=== PATIENT | male | born 1955 | race Caucasian/White ===

== ENCOUNTER → 2021-07-19 08:25 | Outpatient (BNVA) | payer OTHER, SELFPAY | PROVIDERS: Family Provider Family Medicine; PCP Family Medicine; Visit Provider Family Medicine | DX: Z00.00 Encounter for general adult medical examination without abnormal findings (principal) | CPT/HCPCS: 80053; 80061; 84153 ==

== ENCOUNTER → 2022-05-15 15:42 | Outpatient (BNVA) | payer MEDICARE, OTHER, SELFPAY | PROVIDERS: Family Provider Family Medicine; PCP Family Medicine; Visit Provider Otolaryngology | DX: H93.13 Tinnitus, bilateral (principal); H91.93 Unspecified hearing loss, bilateral | CPT/HCPCS: 99203 ==

== ENCOUNTER → 2022-06-12 10:52 | Outpatient (BNVA) | payer MEDICARE, OTHER, SELFPAY | PROVIDERS: Family Provider Family Medicine; PCP Family Medicine; Visit Provider Family Medicine | DX: R10.9 Unspecified abdominal pain (principal) | CPT/HCPCS: 74018; 80053; 85025; 86140 ==

== ENCOUNTER 2022-06-14 16:23 | Emergency (ER) | payer MEDICARE, OTHER, SELFPAY ==
[2022-06-14 16:39] VITALS: BP 134/81; PULSE 69; TEMP 36.8; O2SAT 95; BMI 27.9
[2022-06-14 17:07] VITALS: BP 123/87; PULSE 70; RESP 16; O2SAT 93
--- NOTE | 2022-06-14 17:19 | W.ED.ABDPA2 ---
Documented by User: Froy Rodriguez DO 06/15/22 06:39 HPI - Abdominal Pain General: Chief Complaint: Abdominal Pain Stated Complaint: abdominal pain, sent by doctor Time Seen by Provider: 06/14/22 16:54 Source: patient Mode of arrival: ambulatory History of Present Illness: 66-year-old male presents to the emergency room complaining of abdominal pain. He has had severe abdominal pain for the last several days it is continued. He had seen his doctor had significantly abnormal lab tests which were reviewed and are on the chart. His doctor advised him to present to the emergency room if symptoms worsen. He appears mildly icteric. He is resting comfortably in the bed reporting right upper quadrant abdominal pain radiating to his back. He denies fever sweats chills. Denies dysuria urgency or frequency no hematuria no shortness of breath. Pain is still present but is mildly improved. MD elicited complaint: abdominal pain Onset (ago): day(s) Pain Consistency: intermittent Location: RUQ Quality: cramping Radiation: back Exacerbating factors: eating Relieving factors: nothing Associated Symptoms: Reports bloating, GI cramping, nausea and poor appetite; Denies anorexia, belching, change in bowel habits, change in stool character, chills, coffee ground emesis, constipation, diarrhea, dyspepsia, dysuria, excessive flatus, fever(s), heartburn, hematochezia, hematuria, hematemesis, fecal incontinence, loose stools, melena, syncope and vomiting Review of Systems Const: Denies: fever(s) or chills Card: Denies: syncope GI: Reports: nausea, bloating and GI cramping; Denies: vomiting, hematemesis, coffee ground emesis, heartburn, diarrhea, constipation, belching, excessive flatus, fecal incontinence, change in bowel habits, change in stool character, hematochezia or melena : Denies: dysuria or hematuria PFSH ED PFSH: Medical History Hx of perforation of tympanic membrane Surgical History History of ear surgery Social History Smoking and tobacco status: former smoker Physical Exam Const: COMMON NORMALS: no acute distress GENERAL APPEARANCE: cooperative and comfortable ORIENTATION/CONSCIOUSNESS: Yes awake, Yes oriented to person, Yes oriented to place and Yes oriented to time HENMT: COMMON NORMALS: normocephalic, atraumatic and hearing grossly normal bilaterally HEAD & SCALP: normocephalic and atraumatic Resp: COMMON NORMALS: normal respiratory effort, No retractions, No use of accessory muscles and clear to auscultation bilaterally AUSCULTATION: clear to auscultation bilaterally Cardio: COMMON NORMALS: regular rate, regular rhythm and No murmurs present (Cardio) RATE: regular rate RHYTHM: regular rhythm GI: COMMON NORMALS: Soft to palpation and No hepatosplenomegaly present AUSCULTATION: Yes normoactive bowel sounds PALPATION: Yes Soft to palpation, Yes Tenderness to palpation present (GI) Details: RUQ (Negative Taveras sign), No Guarding due to palpation present (GI) and Yes No hepatosplenomegaly present Extremity: COMMON NORMALS: normal to inspection, capillary refill normal, no clubbing, cyanosis or edema, no calf tenderness and no pedal edema Neuro: SENSORIUM/ORIENTATION: Yes oriented to person, Yes oriented to place and Yes oriented to time Skin: COMMON NORMALS: no rashes or lesions noted GENERAL SKIN EXAM: no rashes or lesions noted Course Vital Signs: Vital signs: Vital Signs Temperature 98.2 F 06/14/22 16:39 Pulse Rate 72 06/14/22 19:44 Respiratory Rate 16 06/14/22 19:44 Blood Pressure 164/104 06/14/22 19:44 Pulse Oximetry 96 06/14/22 19:44 Oxygen Delivery Me thod Room Air 06/14/22 19:44 MDM - Abdominal Pain Medical Decision Making Significant elevation of T. bili and transaminases along with the alk phos on previous labs. Today's labs are nearly normalized. Ultrasound is pending. Suspect patient has passed a gallstone. Care signed out to Dr. Gardner at change of shift. See final notes for diagnosis and disposition. Patient presents for abdominal pain ultrasound here did show some gallbladder wall thickening with gallstones he is not tender at repeat exam at discharge and is abdominal dam is benign with no tenderness he has had no fever he likely had a stone that passed this his bilirubin is improved from 2 days ago is now in normal no common bile duct thickening on the ultrasound spoke to surgeon Dr. Skinner patient is already on Augmentin he is to follow-up with Dr. Skinner outpatient for likely scheduled cholecystectomy. I did inform patient is worsening pain or fever he is to return he understands agrees to plan. Lab Data 06/14/22 17:01 06/14/22 17:01 Labs/Radiology: Radiology Impressions Gallbladder Ultrasound 06/14/22 17:26 IMPRESSION: Gallbladder is filled with stones with wall thickening. The sonographic Taveras's sign is negative arguing against acute cholecystitis by ultrasound. Consider nuclear medicine HIDA scan follow-up for further assessment. Laboratory Results WBC 13.2 10^3/uL (4.0-10.0) H 06/14/22 17: RBC 5.12 10^6/uL (4.1-5.3) 06/14/22 17: Hgb 15.6 g/dL (11.7-16.6) 06/14/22 17: Hct 46.2 % (42.0-52.0) 06/14/22 17: MCV 90.2 fl (80-94) 06/14/22 17: MCH 30.5 pg (28.0-34.0) 06/14/22 17: MCHC 33.8 g/dL (30.0-36.0) 06/14/22 17: RDW 12.8 % (12.1-15.1) 06/14/22 17:01 Plt Count 209 10^3/cmm (130-400) 06/14/22 17: MPV 9.6 fL (7.4-10.4) 06/14/22 17:01 Neut % (Auto) 74.1 % 06/14/22 17:01 Lymph % (Auto) 11.6 % 06/14/22 17: [place] % (Auto) 11.7 % 06/14/22 17: Eos % (Auto) 1.8 % 06/14/22 17:01 Baso % (Auto) 0.4 % 06/14/22 17:01 Neut # (Auto) 9.81 10^3/uL (1.8-7.7) H 06/14/22 17:01 Lymph # (Auto) 1.5 10^3/uL (0.8-4.8) 06/14/22 17:01 [place] # (Auto) 1.6 10^3/uL (0.2-0.9) H 06/14/22 17:01 Eos # (Auto) 0.2 10^3/uL (0.0-0.8) 06/14/22 17:01 Baso # (Auto) 0.1 10^3/uL (0.0-0.1) 06/14/22 17:01 Nucleated RBC % (auto) 0 % 06/14/22 17:01 Nucleated RBCs # 0.0 /100WBC 06/14/22 17:01 Sodium 136 mmol/L (136-145) 06/14/22 17:01 Potassium 3.7 mmol/L (3.5-5.1) 06/14/22 17:01 Chloride 97 mmol/L (98-107) L 06/14/22 17:01 Carbon Dioxide 30 mmol/L (22-29) H 06/14/22 17:01 Anion Gap 12.7 (5-19) 06/14/22 17:01 BUN 12 mg/dL (8-23) 06/14/22 17:01 Creatinine 1.0 mg/dL (0.7-1.2) 06/14/22 17:01 GFR Calculation 75.0 mL/min (90-130) L 06/14/22 17:01 Glucose 92 mg/dL (65-115) 06/14/22 17:01 Calculated Osmolality 281 mOsm/kg (285-295) L 06/14/22 17:01 Calcium 9.0 mg/dL (8.5-10.5) 06/14/22 17:01 Total Bilirubin 0.9 mg/dL (0.15-1.2) 06/14/22 17:01 AST 36 U/L (0-40) 06/14/22 17:01 ALT 247 U/L (0-41) H 06/14/22 17:01 Alkaline Phosphatase 120 U/L (40-130) 06/14/22 17:01 Total Protein 7.3 g/dL (6.6-8.7) 06/14/22 17:01 Albumin 3.9 g/dL (3.5-5.2) 06/14/22 17:01 Globulin 3.4 g/dL (1.3-4.6) 06/14/22 17:01 Lipase 94 U/L (13-60) H 06/14/22 17:01 Urine Color Yellow (Yellow) 06/14/22 16:59 Urine Appearance Clear (CLEAR) 06/14/22 16:59 Urine pH 6 (5-7) 06/14/22 16:59 Ur Specific [place] 1.010 (1.005-1.030) 06/14/22 16:59 Urine Protein Neg (Negative) 06/14/22 16:59 Urine Glucose (UA) Norm (Normal) 06/14/22 16:59 Urine Ketones Negative (Negative) 06/14/22 16:59 Urine Blood 2+ (Negative) H 06/14/22 16:59 Urine Nitrate Negative (Negative) 06/14/22 16:59 Urine Bilirubin Neg (Negative) 06/14/22 16:59 Urine Urobilinogen Neg mg/dL (Negative) 06/14/22 16:59 Ur Leukocyte Esterase Negative (Negative) 06/14/22 16:59 Urine RBC 0-4 /hpf (0-2) H 06/14/22 16:59 Urine WBC None /hpf (0-5) 06/14/22 16:59 Ur Squamous Epith Cells 0-4 /hpf (0-5) H 06/14/22 16:59 Amorphous Sediment Not Reportable 06/14/22 16:59 Urine Bacteria None /hpf (NONE) 06/14/22 16:59 Discharge Plan Discharge Patient Disposition: Home Clinical Impression: Abdominal pain, Cholelithiasis Condition: Stable Prescriptions: New hydrocodone-acetaminophen 5-325 mg tablet 1 tab PO Q6H PRN (Reason: pain) Qty: 14 0RF No Action ondansetron HCl 4 mg tablet 4 mg PO Q6H PRN (Reason: nausea and vomiting) Qty: 30 0RF amoxicillin-pot clavulanate 875-125 mg tablet 1 tab PO BID Qty: 20 0RF Discharge Orders: Discharge ED (Routine); Ordered 06/14/22 Ordered By: Gato Gardner Referrals: Michael Skinner DO [Physician] - 1-3 days Mk Aponte DO [Primary Care Provider] - Discharge Diet: Advance as tolerated Discharge Activity: Resume usual activity Patient Instructions: Gallstones (ED), Abdominal Pain (ED), Opioid Safety Activity Restrictions/Additional Instructions: return if worsening pain or fever Coding Level of Care Code ED Signal Intelligence Analyst for Chg Fwd Documented by User: Gato Gardner MD 06/14/22 19:47 HPI - Abdominal Pain General: Chief Complaint: Abdominal Pain Stated Complaint: abdominal pain, sent by doctor Time Seen by Provider: 06/14/22 16:54 History of Present Illness: . PFS ED PFSH: Medical History Hx of perforation of tympanic membrane Surgical History History of ear surgery Social History Smoking and tobacco status: former smoker Course Vital Signs: Vital signs: Vital Signs Temperature 98.2 F 06/14/22 16:39 Pulse Rate 72 06/14/22 19:44 Respiratory Rate 16 06/14/22 19:44 Blood Pressure 164/104 06/14/22 19:44 Pulse Oximetry 96 06/14/22 19:44 Oxygen Delivery Me thod Room Air 06/14/22 19:44 MDM - Abdominal Pain Medical Decision Making Patient presents for abdominal pain ultrasound here did show some gallbladder wall thickening with gallstones he is not tender at repeat exam at discharge and is abdominal dam is benign with no tenderness he has had no fever he likely had a stone that passed this his bilirubin is improved from 2 days ago is now in normal no common bile duct thickening on the ultrasound spoke to surgeon Dr. Skinner patient is already on Augmentin he is to follow-up with Dr. Skinner outpatient for likely scheduled cholecystectomy. I did inform patient is worsening pain or fever he is to return he understands agrees to plan. Lab Data 06/14/22 17:01 06/14/22 17:01 Labs/Radiology: Radiology Impressions Gallbladder Ultrasound 06/14/22 17:26 IMPRESSION: Gallbladder is filled with stones with wall thickening. The sonographic Taveras's sign is negative arguing against acute cholecystitis by ultrasound. Consider nuclear medicine HIDA scan follow-up for further assessment. Laboratory Results WBC 13.2 10^3/uL (4.0-10.0) H 06/14/22 17:01 RBC 5.12 10^6/uL (4.1-5.3) 06/14/22 17: Hgb 15.6 g/dL (11.7-16.6) 06/14/22 17: Hct 46.2 % (42.0-52.0) 06/14/22 17: MCV 90.2 fl (80-94) 06/14/22 17: MCH 30.5 pg (28.0-34.0) 06/14/22 17: MCHC 33.8 g/dL (30.0-36.0) 06/14/22 17: RDW 12.8 % (12.1-15.1) 06/14/22 17: Plt Count 209 10^3/cmm (130-400) 06/14/22 17:01 MPV 9.6 fL (7.4-10.4) 06/14/22 17:01 Neut % (Auto) 74.1 % 06/14/22 17: Lymph % (Auto) 11.6 % 06/14/22 17:01 [place] % (Auto) 11.7 % 06/14/22 17: Eos % (Auto) 1.8 % 06/14/22 17: Baso % (Auto) 0.4 % 06/14/22 17:01 Neut # (Auto) 9.81 10^3/uL (1.8-7.7) H 06/14/22 17:01 Lymph # (Auto) 1.5 10^3/uL (0.8-4.8) 06/14/22 17:01 [place] # (Auto) 1.6 10^3/uL (0.2-0.9) H 06/14/22 17:01 Eos # (Auto) 0.2 10^3/uL (0.0-0.8) 06/14/22 17: Baso # (Auto) 0.1 10^3/uL (0.0-0.1) 06/14/22 17:01 Nucleated RBC % (auto) 0 % 06/14/22 17:01 Nucleated RBCs # 0.0 /100WBC 06/14/22 17:01 Sodium 136 mmol/L (136-145) 06/14/22 17:01 Potassium 3.7 mmol/L (3.5-5.1) 06/14/22 17:01 Chloride 97 mmol/L (98-107) L 06/14/22 17:01 Carbon Dioxide 30 mmol/L (22-29) H 06/14/22 17:01 Anion Gap 12.7 (5-19) 06/14/22 17:01 BUN 12 mg/dL (8-23) 06/14/22 17:01 Creatinine 1.0 mg/dL (0.7-1.2) 06/14/22 17:01 GFR Calculation 75.0 mL/min (90-130) L 06/14/22 17:01 Glucose 92 mg/dL (65-115) 06/14/22 17:01 Calculated Osmolality 281 mOsm/kg (285-295) L 06/14/22 17:01 Calcium 9.0 mg/dL (8.5-10.5) 06/14/22 17:01 Total Bilirubin 0.9 mg/dL (0.15-1.2) 06/14/22 17:01 AST 36 U/L (0-40) 06/14/22 17:01 ALT 247 U/L (0-41) H 06/14/22 17:01 Alkaline Phosphatase 120 U/L (40-130) 06/14/22 17:01 Total Protein 7.3 g/dL (6.6-8.7) 06/14/22 17:01 Albumin 3.9 g/dL (3.5-5.2) 06/14/22 17:01 Globulin 3.4 g/dL (1.3-4.6) 06/14/22 17:01 Lipase 94 U/L (13-60) H 06/14/22 17:01 Urine Color Yellow (Yellow) 06/14/22 16:59 Urine Appearance Clear (CLEAR) 06/14/22 16:59 Urine pH 6 (5-7) 06/14/22 16:59 Ur Specific [place] 1.010 (1.005-1.030) 06/14/22 16:59 Urine Protein Neg (Negative) 06/14/22 16:59 Urine Glucose (UA) Norm (Normal) 06/14/22 16:59 Urine Ketones Negative (Negative) 06/14/22 16:59 Urine Blood 2+ (Negative) H 06/14/22 16:59 Urine Nitrate Negative (Negative) 06/14/22 16:59 Urine Bilirubin Neg (Negative) 06/14/22 16:59 Urine Urobilinogen Neg mg/dL (Negative) 06/14/22 16:59 Ur Leukocyte Esterase Negative (Negative) 06/14/22 16:59 Urine RBC 0-4 /hpf (0-2) H 06/14/22 16:59 Urine WBC None /hpf (0-5) 06/14/22 16:59 Ur Squamous Epith Cells 0-4 /hpf (0-5) H 06/14/22 16:59 Amorphous Sediment Not Reportable 06/14/22 16:59 Urine Bacteria None /hpf (NONE) 06/14/22 16:59 Discharge Plan Discharge Patient Disposition: Home Clinical Impression: Abdominal pain, Cholelithiasis Condition: Stable Prescriptions: New hydrocodone-acetaminophen 5-325 mg tablet 1 tab PO Q6H PRN (Reason: pain) Qty: 14 0RF No Action ondansetron HCl 4 mg tablet 4 mg PO Q6H PRN (Reason: nausea and vomiting) Qty: 30 0RF amoxicillin-pot clavulanate 875-125 mg tablet 1 tab PO BID Qty: 20 0RF Discharge Orders: Discharge ED (Routine); Ordered 06/14/22 Ordered By: Gato Gardner Referrals: Michael Skinner DO [Physician] - 1-3 days Mk Aponte DO [Primary Care Provider] - Discharge Diet: Advance as tolerated Discharge Activity: Resume usual activity Patient Instructions: Gallstones (ED), Abdominal Pain (ED), Opioid Safety Activity Restrictions/Additional Instructions: return if worsening pain or fever Coding Level of Care Code ED Signal Intelligence Analyst for Adáng Kaylah
--- NOTE | 2022-06-14 17:26 | USR_ITS ---
PROCEDURE INFORMATION: Exam: US Abdomen, Limited; Right Upper Quadrant Exam date and time: 06/14/2022 6:08 PM Age: 66 years old Clinical indication: Epigastric; Patient HX: Upper abdominal pain not relieved by antacids today. No history of abdominal surgery. Normal tbili = 0.9, normal ast = 36, elevated alt = 247, normal alkphos = 120, elevated lipase = 94; Additional info: Abd pain TECHNIQUE: Imaging protocol: Real time ultrasound of the abdomen with image documentation. Limited exam focused on the right upper quadrant. COMPARISON: CR XR abdomen 1V* [id number] 06/12/2022 10:51 AM FINDINGS: Liver: Normal. No masses. Gallbladder: Gallbladder wall thickness measures 9 mm. The gallbladder is filled with stones with wall echo shadow sign present. Sonographic Taveras's sign is negative. Biliary ducts: Normal. No stones. No dilation. Pancreas: Visualized pancreas is unremarkable. Right kidney: Normal. No mass. No hydronephrosis. US/US gall bladder [id number] IMPRESSION: Gallbladder is filled with stones with wall thickening. The sonographic Taveras's sign is negative arguing against acute cholecystitis by ultrasound. Consider nuclear medicine HIDA scan follow-up for further assessment.
[2022-06-14 17:28] LABS: Basophils # 0.1 10^3/uL (0.0-0.1); Basophils % 0.4 %; Eosinophils # 0.2 10^3/uL (0.0-0.8); Eosinophils % 1.8 %; Hematocrit 46.2 % (42.0-52.0); Hemoglobin 15.6 g/dL (11.7-16.6); Lymphocytes # 1.5 10^3/uL (0.8-4.8); Lymphocytes % 11.6 %; Mean Corpuscular HGB Conc 33.8 g/dL (30.0-36.0); Mean Corpuscular Hemoglobin 30.5 pg (28.0-34.0); Mean Corpuscular Volume 90.2 fl (80-94); Mean Platelet Volume 9.6 fL (7.4-10.4); Monocytes # 1.6 10^3/uL (0.2-0.9); Monocytes % 11.7 %; Neutrophils # 9.81 10^3/uL (1.8-7.7); Neutrophils % 74.1 %; Nucleated Red Blood Cells % 0 %; Platelet Count 209 10^3/cmm (130-400); Red Blood Count 5.12 10^6/uL (4.1-5.3); Red Cell Distribution Width 12.8 % (12.1-15.1); White Blood Count 13.2 10^3/uL (4.0-10.0)
[2022-06-14 17:44] LABS: Add Urine Microscopic? YES; Bilirubin Urine Neg (Negative); Blood Urine 2+ (Negative); Glucose Urine UA Norm (Normal); Ketones Urine Negative (Negative); Leukocyte Esterase Urine Negative (Negative); Nitrate Urine Negative (Negative); Protein Urine Neg (Negative); Urine Appearance Clear (CLEAR); Urine Color Yellow (Yellow); Urobilinogen Urine Neg (Negative); pH Urine 6 (5-7)
[2022-06-14 17:53] LABS: Alanine Aminotransferase 247 U/L (0-41); Albumin Level 3.9 g/dL (3.5-5.2); Alkaline Phosphatase 120 U/L (40-130); Anion Gap 12.7 (5-19); Aspartate Amino Transferase 36 U/L (0-40); Blood Urea Nitrogen 12 mg/dL (8-23); Carbon Dioxide 30 mmol/L (22-29); Chloride 97 mmol/L (98-107); Globulin 3.4 g/dL (1.3-4.6); Glucose 92 mg/dL (65-115); Lipase 94 U/L (13-60); Osmolality Calculated 281 mOsm/kg (285-295); Potassium 3.7 mmol/L (3.5-5.1); Sodium 136 mmol/L (136-145); Total Bilirubin 0.9 mg/dL (0.15-1.2); Total Protein 7.3 g/dL (6.6-8.7)
[2022-06-14 17:56] LABS: Add Urine Culture? No; RBC Urine 0-4 /hpf (0-2); Squamous Epithelial Cell Urine 0-4 /hpf (0-5)
[2022-06-14 18:20] VITALS: BP 142/95; PULSE 65; RESP 16; O2SAT 95
[2022-06-14 19:44] VITALS: BP 164/104; PULSE 72; RESP 16; O2SAT 96
--- NOTE | 2022-06-15 08:10 | DCPLANNER ---
Addendum entered by Bonnie Garvey 07/12/22 10:05: Patient had a follow up appointment with general surgery - patient did attend appointment Addendum entered by Bonnie Garvey 06/16/22 13:37: Patient has a follow up appointment scheduled for Monday, July 11, 2022 at 9:[address] Skinner at general surgery. Original Note: physician relations manager had message to schedule a follow up appointment for patient with general surgery. physician relations manager sent patients information to the front office staff at general surgery. Patients information will be printed and reviewed. Clinic will call patient with appointment information.
== END 2022-06-14 20:07 | disposition home or self-care (01) ==
PROVIDERS: Family Medicine; Emergency Provider Emergency Medicine; PCP Family Medicine
DX: K80.20 Calculus of gallbladder without cholecystitis without obstruction (principal); Z87.891 Personal history of nicotine dependence
CPT/HCPCS: 76705; 80053; 81001; 83690; 85025; 99284

== ENCOUNTER 2022-06-26 15:11 | Inpatient (IN) | payer MEDICARE, OTHER, SELFPAY ==
[2022-06-26 15:19] VITALS: BP 124/65; PULSE 85; RESP 16; TEMP 38.5; O2SAT 96; BMI 27.6
--- NOTE | 2022-06-26 15:24 | ED_ITS ---
HPI - Abdominal Pain General: Chief Complaint: Abdominal Pain Stated Complaint: Gallbladder Time Seen by Provider: 06/26/22 15:24 Source: patient Mode of arrival: ambulatory History of Present Illness: 66-year-old male who is seen on 06/14 with complaint of elevated bilirubin he was referred to the emergency room on repeat exam here and lab work showed that his bilirubin had decreased he was thought to have passed the gallstone. He was referred to outpatient surgery. He did was on a short course of Augmentin which she finished 5 days ago. He returns today with a fever. And worsening right upper quadrant abdominal pain anything he eats seems to worsen the pain. He had vomiting and diarrhea with that as well. MD elicited complaint: abdominal pain Pertinent past history: none Onset (ago): minute(s) Pain Consistency: constant Location: None Quality: cramping Radiation: none Exacerbating factors: nothing Relieving factors: nothing Associated Symptoms: Reports diarrhea, nausea and vomiting; Denies anorexia, belching, bloating, change in bowel habits, change in stool character, chills, coffee ground emesis, constipation, GI cramping, dyspepsia, dysuria, excessive flatus, fever(s), heartburn, hematochezia, hematuria, hematemesis, fecal incontinence, loose stools, melena, poor appetite and syncope Review of Systems Const: Denies: fever(s), chills, fatigue or malaise ENMT: Denies: throat pain, ear or mastoid pain, nasal discharge or nasal congestion Card: Denies: chest pain, irregular heart rhythm, edema or syncope Resp: Denies: dyspnea, productive cough or non-productive cough GI: Reports: abdominal pain, nausea, vomiting and diarrhea; Denies: hematemesis, coffee ground emesis, heartburn, constipation, bloating, GI cramping, belching, excessive flatus, fecal incontinence, change in bowel habits, change in stool character, hematochezia or melena : Denies: dysuria, urinary frequency, urinary urgency or hematuria Skin/Breast: Denies: rash or pruritus PFSH ED PFSH: Medical History Hx of perforation of tympanic membrane Surgical History History of ear surgery Social History Smoking and tobacco status: former smoker Physical Exam Const: GENERAL APPEARANCE: cooperative and comfortable ORIENTATION/CONSCIOUSNESS: Yes awake, Yes oriented to person, Yes oriented to place and Yes oriented to time HENMT: COMMON NORMALS: normocephalic, atraumatic and hearing grossly normal bilaterally HEAD & SCALP: normocephalic and atraumatic Resp: COMMON NORMALS: normal respiratory effort, No retractions, No use of accessory muscles and clear to auscultation bilaterally AUSCULTATION: clear to auscultation bilaterally Cardio: COMMON NORMALS: regular rate, regular rhythm and No murmurs present (Cardio) RATE: regular rate RHYTHM: regular rhythm GI: COMMON NORMALS: No hepatosplenomegaly present AUSCULTATION: Yes n ormoactive bowel sounds PALPATION: Yes Tenderness to palpation present (GI) Details: RUQ, No Guarding due to palpation present (GI) and Yes No hepatosplenomegaly present Extremity: COMMON NORMALS: normal to inspection, capillary refill normal, no clubbing, cyanosis or edema, no calf tenderness and no pedal edema Neuro: SENSORIUM/ORIENTATION: Yes oriented to person, Yes oriented to place and Yes oriented to time Skin: COMMON NORMALS: no rashes or lesions noted GENERAL SKIN EXAM: no rashes or lesions noted Course Vital Signs: Vital signs: Vital Signs Temperature 101.3 F H 06/26/22 15:19 Pulse Rate 76 06/26/22 16:50 Respiratory Rate 16 06/26/22 15:19 Blood Pressure 131/61 06/26/22 16:50 Pulse Oximetry 96 06/26/22 16:50 Oxygen Delivery Me thod Room Air 06/26/22 16:50 MDM - Abdominal Pain Medical Decision Making Cholelithiasis with thickened gallbladder wall no pericholecystic fluid. Liver enzymes are not elevated but does have a temp of 113. Will admit to the hospital under general surgery. Pain medications start Zosyn. Dr. Skinner will see the patient. Orders written. Medical Records I reviewed the patient's medical records. Lab Data I reviewed the patient's lab results. 06/26/22 15:56 06/26/22 15:56 Labs/Radiology: Radiology Impressions Gallbladder Ultrasound 06/26/22 15:31 IMPRESSION: 1. Abnormal gallbladder. Large amount shadowing from the gallbladder fossa. Gallbladder is contracted around stones. The adjacent gallbladder wall is thickened. No pericholecystic fluid. 2. No bile duct dilatation. Laboratory Results WBC 19.4 10^3/uL (4.0-10.0) H 06/26/22 15:56 RBC 4.64 10^6/uL (4.1-5.3) 06/26/22 15:56 Hgb 13.8 g/dL (11.7-16.6) 06/26/22 15:56 Hct 41.9 % (42.0-52.0) L 06/26/22 15:56 MCV 90.3 fl (80-94) 06/26/22 15:56 MCH 29.7 pg (28.0-34.0) 06/26/22 15:56 MCHC 32.9 g/dL (30.0-36.0) 06/26/22 15:56 RDW 12.7 % (12.1-15.1) 06/26/22 15:56 Plt Count 279 10^3/cmm (130-400) 06/26/22 15:56 MPV 9.0 fL (7.4-10.4) 06/26/22 15:56 Neut % (Auto) 87.5 % 06/26/22 15:56 Lymph % (Auto) 4.3 % 06/26/22 15:56 [place] % (Auto) 7.1 % 06/26/22 15:56 Eos % (Auto) 0.3 % 06/26/22 15:56 Baso % (Auto) 0.3 % 06/26/22 15:56 Neut # (Auto) 17.00 10^3/uL (1.8-7.7) H 06/26/22 15:56 Lymph # (Auto) 0.8 10^3/uL (0.8-4.8) 06/26/22 15:56 [place] # (Auto) 1.4 10^3/uL (0.2-0.9) H 06/26/22 15:56 Eos # (Auto) 0.1 10^3/uL (0.0-0.8) 06/26/22 15:56 Baso # (Auto) 0.1 10^3/uL (0.0-0.1) 06/26/22 15:56 Nucleated RBC % (auto) 0 % 06/26/22 15:56 Nucleated RBCs # 0.0 /100WBC 06/26/22 15:56 Sodium 135 mmol/L (136-145) L 06/26/22 15:56 Potassium 4.2 mmol/L (3.5-5.1) 06/26/22 15:56 Chloride 100 mmol/L (98-107) 06/26/22 15:56 Carbon Dioxide 26 mmol/L (22-29) 06/26/22 15:56 Anion Gap 13.2 (5-19) 06/26/22 15:56 BUN 12 mg/dL (8-23) 06/26/22 15:56 Creatinine 1.1 mg/dL (0.7-1.2) 06/26/22 15:56 GFR Calculation 67.2 mL/min (90-130) L 06/26/22 15:56 Glucose 94 mg/dL (65-115) 06/26/22 15:56 Calculated Osmolality 280 mOsm/kg (285-295) L 06/26/22 15:56 Calcium 8.9 mg/dL (8.5-10.5) 06/26/22 15:56 Total Bilirubin 0.5 mg/dL (0.15-1.2) 06/26/22 15:56 AST 11 U/L (0-40) 06/26/22 15:56 ALT 20 U/L (0-41) 06/26/22 15:56 Alkaline Phosphatase 62 U/L (40-130) 06/26/22 15:56 Total Protein 6.1 g/dL (6.6-8.7) L 06/26/22 15:56 Albumin 3.7 g/dL (3.5-5.2) 06/26/22 15:56 Globulin 2.4 g/dL (1.3-4.6) 06/26/22 15:56 Lipase 30 U/L (13-60) 06/26/22 15:56 Discharge Plan Discharge Condition: Stable Prescriptions: No Action No Known Home Medications Referrals: Mk Aponte DO [Primary Care Provider] - Coding Level of Care Code ED Band Lining Bander for Chg Kaylah
--- NOTE | 2022-06-26 15:31 | US_ITS ---
WS: [id number] RIGHT UPPER QUADRANT ULTRASOUND HISTORY: cholecystitis COMPARISON: 06/14/2022 Liver: 15.5 cm in length. Normal size liver and echogenicity. No bile duct dilatation or mass. Portal Vein: Normal hepatopetal flow with monophasic waveform. Gallbladder: Abnormal gallbladder. Large amount shadowing from the gallbladder fossa. Gallbladder is filled with stones. Irregular walled gallbladder is very difficult to visualize and may be thickened. No pericholecystic fluid. CBD: 0.4 cm Pancreas: Limited visualization of the pancreas. No abnormality identified. Right kidney: 10.9 cm in length. Normal size and echogenicity. No hydronephrosis or mass. Aorta and IVC: Unremarkable abdominal aorta and IVC. No ascites. US/US gall bladder [id number] IMPRESSION: 1. Abnormal gallbladder. Large amount shadowing from the gallbladder fossa. Ga llbladder is contracted around stones. The adjacent gallbladder wall is thicken ed. No pericholecystic fluid. 2. No bile duct dilatation.
[2022-06-26 16:11] LABS: Basophils # 0.1 10^3/uL (0.0-0.1); Basophils % 0.3 %; Eosinophils # 0.1 10^3/uL (0.0-0.8); Eosinophils % 0.3 %; Hematocrit 41.9 % (42.0-52.0); Hemoglobin 13.8 g/dL (11.7-16.6); Lymphocytes # 0.8 10^3/uL (0.8-4.8); Lymphocytes % 4.3 %; Mean Corpuscular HGB Conc 32.9 g/dL (30.0-36.0); Mean Corpuscular Hemoglobin 29.7 pg (28.0-34.0); Mean Corpuscular Volume 90.3 fl (80-94); Monocytes # 1.4 10^3/uL (0.2-0.9); Monocytes % 7.1 %; Neutrophils % 87.5 %; Nucleated Red Blood Cells % 0 %; Platelet Count 279 10^3/cmm (130-400); Red Blood Count 4.64 10^6/uL (4.1-5.3); Red Cell Distribution Width 12.7 % (12.1-15.1); White Blood Count 19.4 10^3/uL (4.0-10.0)
[2022-06-26 16:24] LABS: Alanine Aminotransferase 20 U/L (0-41); Albumin Level 3.7 g/dL (3.5-5.2); Alkaline Phosphatase 62 U/L (40-130); Anion Gap 13.2 (5-19); Aspartate Amino Transferase 11 U/L (0-40); Blood Urea Nitrogen 12 mg/dL (8-23); Calcium 8.9 mg/dL (8.5-10.5); Carbon Dioxide 26 mmol/L (22-29); Chloride 100 mmol/L (98-107); Globulin 2.4 g/dL (1.3-4.6); Glomerular Filtration Rate 67.2 mL/min (90-130); Glucose 94 mg/dL (65-115); Lipase 30 U/L (13-60); Osmolality Calculated 280 mOsm/kg (285-295); Potassium 4.2 mmol/L (3.5-5.1); Sodium 135 mmol/L (136-145); Total Bilirubin 0.5 mg/dL (0.15-1.2); Total Protein 6.1 g/dL (6.6-8.7)
[2022-06-26] MEDS: piperacillin-tazobactam 3.375 GM in sodium chloride 0.9% (plus) 50 ML IV ×2 (16:48→23:25)
[2022-06-26 16:50] VITALS: BP 131/61; PULSE 76; O2SAT 96
[2022-06-26 17:27] LABS: Urine Appearance Clear (CLEAR); Urine Color Yellow (Yellow)
[2022-06-26 17:28] LABS: Add Urine Culture? No; Add Urine Microscopic? YES; Bacteria Urine TRACE /hpf; Bilirubin Urine Neg (Negative); Blood Urine 2+ (Negative); Glucose Urine UA Norm (Normal); Ketones Urine 1+ (Negative); Leukocyte Esterase Urine Negative (Negative); Nitrate Urine Negative (Negative); Protein Urine Neg (Negative); RBC Urine 0-4 /hpf (0-2); Specific Gravity, Urine 1.015 (1.005-1.030); Urobilinogen Urine Norm (Negative); pH Urine 5 (5-7)
[2022-06-26 17:31] VITALS: BP 132/74; PULSE 82; RESP 16; O2SAT 94
[2022-06-26] MEDS: sodium chloride 0.9% 1,000 ML 100 ML IV (19:36)
[2022-06-26 23:11] VITALS: BP 113/72; PULSE 83; RESP 18; TEMP 37.8; O2SAT 95
[2022-06-27] VITALS: BP 113/72; PULSE 90; RESP 17; TEMP 38.1; O2SAT 92
[2022-06-27 03:40] VITALS: BP 110/67; PULSE 89; RESP 16; TEMP 37.2; O2SAT 92
[2022-06-27 04:41] LABS: Basophils # 0.1 10^3/uL (0.0-0.1); Basophils % 0.2 %; Hematocrit 41.1 % (42.0-52.0); Hemoglobin 13.9 g/dL (11.7-16.6); Lymphocytes # 0.8 10^3/uL (0.8-4.8); Lymphocytes % 3.6 %; Mean Corpuscular HGB Conc 33.8 g/dL (30.0-36.0); Mean Corpuscular Volume 88.8 fl (80-94); Mean Platelet Volume 9.2 fL (7.4-10.4); Monocytes # 1.8 10^3/uL (0.2-0.9); Monocytes % 8.1 %; Neutrophils # 19.36 10^3/uL (1.8-7.7); Neutrophils % 87.3 %; Nucleated Red Blood Cells % 0 %; Platelet Count 273 10^3/cmm (130-400); Red Blood Count 4.63 10^6/uL (4.1-5.3); Red Cell Distribution Width 12.7 % (12.1-15.1); White Blood Count 22.2 10^3/uL (4.0-10.0)
[2022-06-27 05:05] LABS: Alanine Aminotransferase 18 U/L (0-41); Albumin Level 3.3 g/dL (3.5-5.2); Alkaline Phosphatase 65 U/L (40-130); Anion Gap 17.4 (5-19); Aspartate Amino Transferase 11 U/L (0-40); Blood Urea Nitrogen 13 mg/dL (8-23); Calcium 8.5 mg/dL (8.5-10.5); Carbon Dioxide 21 mmol/L (22-29); Chloride 101 mmol/L (98-107); Globulin 2.7 g/dL (1.3-4.6); Glucose 88 mg/dL (65-115); Osmolality Calculated 282 mOsm/kg (285-295); Potassium 3.4 mmol/L (3.5-5.1); Sodium 136 mmol/L (136-145); Total Bilirubin 0.6 mg/dL (0.15-1.2)
[2022-06-27] MEDS: sodium chloride 0.9% 1,000 ML 100 ML IV ×3 (05:43→23:35)
[2022-06-27] MEDS: piperacillin-tazobactam 3.375 GM in sodium chloride 0.9% (plus) 50 ML IV ×3 (05:47→23:34)
[2022-06-27 08:00] VITALS: BP 107/70; PULSE 69; RESP 16; TEMP 36.9; O2SAT 94
--- NOTE | 2022-06-27 09:45 | PC.CHAP ---
Pastoral Care Encounter/Spiritual Assessment Type of Contact [] Declined hand packer visit [] Patient/Family/Request visit [] Outpatient visit [] Follow-up visit [] Physician referral [] Code/Alert [x] Routine visit [] Staff referral [] Actively dying [] Patient sleeping [x] Family support [] [] Out of room [] Palliative care [] [] Receiving care in room [] Pre-surgical visit [] Trauma [] Long length of stay [] ICU visit [] Other: Relational/Emotional Strength [x] Patient feels connected with others/family/visitors/staff [] Distress [] Loneliness/isolation [] Abandonment Spirituality of Patient [x] Person of Viviana [] Attends Restorationist of their Viviana [x] Believes in Prayer [] Reads Bible or Lutheran materials [] There are Spiritual issues to be addressed Director Pharmacy Services Interventions [x] Prayer [x] Active listening [] Non-anxious presence [x] Spiritual/emotional support [] Crisis/trauma care [] Spiritual counseling [] Bereavement support [] Provided bereavement packet [] Provided Bible/devotional materials [] Provided toy/stuffed animal, coloring book to patient or family member [] Provided Communion [] Anointing/Josephine [] Salvation [x] Completed spiritual assessment [] Other: Impact on Illness or Injury [] Angry [] Fearful [] Anxious [] Often cries [] Exhaustion [] Unable to work [] Unable to attend oriental orthodox [] Unable to walk/stand [] Unable to read [] Unable to drive [] Unable to eat/drink [] Unable to sleep [] Unable to be with family [] Patient intubated [] Other: Summary Time spent with patient 5 min
[2022-06-27 12:00] VITALS: BP 113/76; PULSE 67; RESP 17; TEMP 36.6; O2SAT 95
--- NOTE | 2022-06-27 13:25 | CTR_ITS ---
PROCEDURE INFORMATION: Exam: CT Abdomen And Pelvis With Contrast Exam date and time: 06/27/2022 3:07 PM Age: 66 years old Clinical indication: Abdominal pain; Localized; Left lower quadrant (llq); Additional info: Abdominal pain, elevated wbc TECHNIQUE: Imaging protocol: Computed tomography of the abdomen and pelvis with contrast. Contrast material: OMNI 350; Contrast volume: 100 ml; Contrast route: INTRAVENOUS (IV); Other contrast: Oral, omni 350, 50; REPORTING DATA: Count of CT and Cardiac NM exams in prior 12 months: This patient has received 0 known CTs and 0 known cardiac nuclear medicine studies in the 12 months prior to the current study. COMPARISON: CR XR abdomen 1V* [id number] 06/12/2022 10:51 AM RADIATION DOSE METRICS: Total DLP (mGy-cm): 681.18 FINDINGS: Diaphragm: There is a small hiatal hernia. Liver: Normal in size. No mass. Gallbladder and bile ducts: Normal. No calcified stones. No ductal dilation. Pancreas: Normal. No ductal dilation. Spleen: Normal in size. No mass. Adrenal glands: Normal. No mass. Kidneys and ureters: The kidneys are normal in size with no hydronephrosis or mass. 0.3 cm sharply-circumscribed hypodensity anteriorly in the lower pole of the left kidney likely represents a small cyst though it is too small to characterize by any imaging modality. Stomach and bowel: There are haziness of the paracolic fat surrounding long segment of sigmoid colon involved with diverticulosis. Wall of the sigmoid, descending and transverse colon appears mildly thickened. No abnormal wall thickening in the small bowel. No abnormal dilatation of the bowel. Appendix: Normal appendix is visualized. Intraperitoneal space: No free intraperitoneal fluid or air. Vasculature: No abdominal aortic aneurysm. Lymph nodes: No enlarged lymph nodes. Urinary bladder: Mild diffuse wall thickening may be artifactual due to lack of proper distension. No focal mass, no stones. Reproductive: The prostate is mildly enlarged with central calcifications. Bones/joints: No acute fracture. No dislocation. No suspicious lytic or sclerotic bone lesions. Soft tissues: There are fat containing bilateral inguinal hernias. CT/CT abdomen pelvis w con* [id number] IMPRESSION: Acute inflammatory changes surrounding the long segment of sigmoid colon involved with diverticulosis with mild wall thickening in the left and transverse colon. Differential diagnosis includes left colitis and acute diverticulitis. No acute finding such as bowel obstruction, perforation or an abscess. COMMENTS: Consistent with the [employer]'s Incidental Findings Committee white paper (J Am Miley Radiol 2018): Any incidental renal lesion less than 1 cm or classified as too small to characterize, or any incidental cystic renal lesion characterized as simple-appearing, is likely benign. No follow-up imaging is recommended for these lesions per consensus recommendations based on imaging criteria.
[2022-06-27] MEDS: iohexol 350 mg/mL 500 mL Btl (per mL) IV (15:16)
[2022-06-27] MEDS: iohexol 350 mg/mL 500 mL Btl (per mL) PO (15:16)
[2022-06-27 16:00] VITALS: BP 114/73; PULSE 62; RESP 15; TEMP 36.9; O2SAT 98
--- NOTE | 2022-06-27 17:40 | P.HP_ITS ---
Providers/Chief Complaint Admitting Physician: Michael Skinner DO Primary Care Provider: Mk Aponte DO Chief Complaint: Abdominal pain History of Present Illness Tavares Mercado is a 66 year old male who presented to the hospital with a several day history of diffuse abdominal pain. He reports that his pain started suprapubically and then went to the left lower quadrant and then right upper quadrant but is now mostly in the left lower quadrant. Pain does not radiate. Palpation makes pain worse. Nothing makes pain better. Says he is having 20 watery bowel movements a day. He was having abdominal pain a couple of weeks ago and was put on oral antibiotics. His watery diarrhea started after this. CT of the abdomen pelvis showed transverse descending and sigmoid colitis. Ultrasound of the gallbladder showed only gallstones. Stool studies showed a C. difficile infection. Review of Systems General: Reports: 10 or more systems reviewed and unremarkable except in HPI and below Medications/Allergies Home Medications Medication Instructions Recorded Confirmed Last Taken Type No Known Home Medications 06/26/22 06/26/22 Unknown History Allergies Allergy/AdvReac Type Severity Reaction Status Date / Time No Known Allergies Allergy Verified 06/12/22 10:16 PFSH Acute PFSH: Medical History Hx of perforation of tympanic membrane Surgical History History of ear surgery Social History Smoking and tobacco status: former smoker Vitals/I&O/Wt Last Vital Signs Temp 98.4 F 06/27/22 16:00 Pulse 62 06/27/22 16:00 Resp 15 06/27/22 16:00 BP 114/73 06/27/22 16:00 Pulse Ox 98 06/27/22 16:00 O2 Del Method Room Air 06/27/22 03:40 06/27/22 06/27/22 06/27/22 06:59 14:59 22:59 Intake Total 1050 / 1100 942.708 / 942.708 Balance 1050 / 1100 942.708 / 942.708 Weight last 48 hrs Weight 192 lb 6 oz Physical Exam Narrative: General : Patient is well developed , no acute distress, oriented x3 Head : Normal cephalic, a-traumatic. Ears : Pinnae and external canal are normal. Hearing is normal. Eyes : PERRLA, Sclera and injection are normal. No conjunctival discharge. Nose : Mucous membranes are without erythema. Throat : buccal mucosa is normal, gums are without significant recession or hypertrophy. Lungs : Equal chest rise bilaterally, no use of accessory muscles, trachea is midline. Cor : Rate and rhythm are normal. Abdomen : Soft, ND, mild left lower quadrant tenderness, no g/r/m Extremities : No edema, no cyanosis or clubbing, dorsalis pedis pulses are present bilaterally, non-tender to palpation of calves. Upper extremities are normal bilaterally. Back : non-tender to palpation, no CVA tenderness. Neuro : CN II - XII intact, Upper and lower extremities have equal and full strength Data 06/28/22 07:40 06/28/22 07:40 Micro: Microbiology 06/26/22 16:41 Blood Culture - Preliminary Blood NEGATIVE TO DATE 06/26/22 16:41 Blood Culture - Preliminary Blood NEGATIVE TO DATE 06/27/22 13:30 C.difficile Toxin B Gene (PCR) - Final Stool Routine Collection A&P Assessment and plan (1) C. difficile colitis: (2) Sepsis: Plan IV fluids Antibiotics Clear liquid diet Repeat labs in the morning Hepatitis panel Attestations Medical Necessity Statement*: Patient requires at least 1 night in the hospital for treatment of C. difficile colitis Coding Level of Care Code Acute Code for [facility] Diagnoses C. difficile colitis A04.72 Sepsis A41.9
--- NOTE | 2022-06-27 18:41 | PC.NURSE ---
PATIENT HAS HAD SEVERAL BOWEL MOVEMENTS TODAY. MINIMAL ABDOMINAL PAIN. STARTED REGULAR DIET THIS EVENING. CURRENTLY RESTING IN BED WITH VISITORS AT BEDSIDE.
[2022-06-27 19:28] VITALS: BP 112/69; PULSE 68; RESP 16; TEMP 36.6; O2SAT 95
[2022-06-28] VITALS: BP 127/73; PULSE 67; RESP 16; TEMP 36.8; O2SAT 95
[2022-06-28 04:00] VITALS: BP 119/73; PULSE 63; RESP 16; TEMP 36.4; O2SAT 94
[2022-06-28] MEDS: piperacillin-tazobactam 3.375 GM in sodium chloride 0.9% (plus) 50 ML IV (05:55)
[2022-06-28] MEDS: metroNIDAZOLE IV 500 MG/100 ML PREMIX 100 MG IV (07:07)
[2022-06-28 08:00] VITALS: BP 103/66; PULSE 59; RESP 16; TEMP 36.8; O2SAT 95
[2022-06-28 08:09] LABS: Basophils # 0.1 10^3/uL (0.0-0.1); Basophils % 0.4 %; Eosinophils # 0.3 10^3/uL (0.0-0.8); Eosinophils % 2.5 %; Hematocrit 39.6 % (42.0-52.0); Hemoglobin 12.8 g/dL (11.7-16.6); Lymphocytes # 1.3 10^3/uL (0.8-4.8); Lymphocytes % 10.7 %; Mean Corpuscular HGB Conc 32.3 g/dL (30.0-36.0); Mean Corpuscular Hemoglobin 29.4 pg (28.0-34.0); Mean Platelet Volume 9.4 fL (7.4-10.4); Monocytes # 1.1 10^3/uL (0.2-0.9); Monocytes % 9.2 %; Neutrophils # 9.04 10^3/uL (1.8-7.7); Neutrophils % 76.9 %; Nucleated Red Blood Cells % 0 %; Platelet Count 236 10^3/cmm (130-400); Red Blood Count 4.35 10^6/uL (4.1-5.3); Red Cell Distribution Width 12.7 % (12.1-15.1); White Blood Count 11.8 10^3/uL (4.0-10.0)
[2022-06-28 08:25] LABS: Anion Gap 11.6 (5-19); Blood Urea Nitrogen 10 mg/dL (8-23); Calcium 8.4 mg/dL (8.5-10.5); Carbon Dioxide 23 mmol/L (22-29); Chloride 106 mmol/L (98-107); Glomerular Filtration Rate 84.7 mL/min (90-130); Glucose 86 mg/dL (65-115); Magnesium 2.1 mg/dL (1.7-2.3); Osmolality Calculated 282 mOsm/kg (285-295); Potassium 3.6 mmol/L (3.5-5.1); Sodium 137 mmol/L (136-145)
[2022-06-28 08:55] LABS: Hepatitis A Antibody IgM Non-Reactive (Nonreactive); Hepatitis B Core AB, Total Non-Reactive (Nonreactive); Hepatitis B Surface AB 4.7 (11.5-1000); Hepatitis B Surface Antigen Non-Reactive (Nonreactive); Hepatitis C Virus Antibody Non-Reactive (Nonreactive)
[2022-06-28] MEDS: sodium chloride 0.9% 1,000 ML 100 ML IV (11:01)
[2022-06-28 12:00] VITALS: BP 106/66; PULSE 59; RESP 17; TEMP 19.9; O2SAT 96
--- NOTE | 2022-06-28 14:00 | P.DS_ITS ---
Discharge Providers Date of Admission: 06/26/22 17:38 Date of Discharge: June 28, 2022 Attending Provider at Admission: Michael Skinner DO Attending Provider at Discharge: Michael Skinner DO Primary Care Provider: Mk Aponte DO Diagnoses at Discharge Discharge Diagnosis (1) C. difficile colitis: Status: Acute (2) Sepsis: Status: Acute Reason for Visit Reason for Visit: Abdominal pain Hospital Course Hospital Course Is a very pleasant 66-year-old gentleman who presented to the hospital with abdominal pain and fever. He was diagnosed with C. difficile colitis and treated with oral vancomycin. Symptoms improved significantly and his leukocytosis nearly resolved prior to discharge home on oral vancomycin. Physical Exam Narrative: General : Patient is well developed , no acute distress, oriented x3 Head : Normal cephalic, a-traumatic. Ears : Pinnae and external canal are normal. Hearing is normal. Eyes : PERRLA, Sclera and injection are normal. No conjunctival discharge. Nose : Mucous membranes are without erythema. Throat : buccal mucosa is normal, gums are without significant recession or hypertrophy. Lungs : Equal chest rise bilaterally, no use of accessory muscles, trachea is midline. Cor : Rate and rhythm are normal. Abdomen : Soft, ND, mild left lower quadrant tenderness, no g/r/m Extremities : No edema, no cyanosis or clubbing, dorsalis pedis pulses are present bilaterally, non-tender to palpation of calves. Upper extremities are normal bilaterally. Back : non-tender to palpation, no CVA tenderness. Neuro : CN II - XII intact, Upper and lower extremities have equal and full strength Discharge Data Studies Completed and Pending Completed Studies During Hospitalization Category Date Time Status CT abdomen pelvis w con* [id number] Stat Cat Scan 06/27/22 13:25 Completed US gall bladder [id number] Stat Ultrasound 06/26/22 15:31 Completed Pending at discharge Category Date Time Status Blood Culture Stat Lab 06/26/22 16:41 Results stool Ova and Parasite [Enteric Parasite Panel by PCR] Lab 06/27/22 13:30 Received Routine Radiology Impressions Gallbladder Ultrasound 06/26/22 15:31 IMPRESSION: 1. Abnormal gallbladder. Large amount shadowing from the gallbladder fossa. Gallbladder is contracted around stones. The adjacent gallbladder wall is thickened. No pericholecystic fluid. 2. No bile duct dilatation. Abdomen/Pelvis CT 06/27/22 13:25 IMPRESSION: Acute inflammatory changes surrounding the long segment of sigmoid colon involved with diverticulosis with mild wall thickening in the left and transverse colon. Differential diagnosis includes left colitis and acute diverticulitis. No acute finding such as bowel obstruction, perforation or an abscess. COMMENTS: Consistent with the [employer]'s Incidental Findings Committee white paper (J Am Miley Radiol 2018): Any incidental renal lesion less than 1 cm or classified as too small to characterize, or any incidental cystic renal lesion characterized as simple-appearing, is likely benign. No follow-up imaging is recommended for these lesions per consensus recommendations based on imaging criteria. Laboratory Results WBC 11.8 10^3/uL (4.0-10.0) H 06/28/22 07:40 RBC 4.35 10^6/uL (4.1-5.3) 06/28/22 07:40 Hgb 12.8 g/dL (11.7-16.6) 06/28/22 07:40 Hct 39.6 % (42.0-52.0) L 06/28/22 07:40 MCV 91.0 fl (80-94) 06/28/22 07:40 MCH 29.4 pg (28.0-34.0) 06/28/22 07:40 MCHC 32.3 g/dL (30.0-36.0) 06/28/22 07:40 RDW 12.7 % (12.1-15.1) 06/28/22 07:40 Plt Count 236 10^3/cmm (130-400) 06/28/22 07:40 MPV 9.4 fL (7.4-10.4) 06/28/22 07:40 Neut % (Auto) 76.9 % 06/28/22 07:40 Lymph % (Auto) 10.7 % 06/28/22 07:40 [place] % (Auto) 9.2 % 06/28/22 07:40 Eos % (Auto) 2.5 % 06/28/22 07:40 Baso % (Auto) 0.4 % 06/28/22 07:40 Neut # (Auto) 9.04 10^3/uL (1.8-7.7) H 06/28/22 07:40 Lymph # (Auto) 1.3 10^3/uL (0.8-4.8) 06/28/22 07:40 [place] # (Auto) 1.1 10^3/uL (0.2-0.9) H 06/28/22 07:40 Eos # (Auto) 0.3 10^3/uL (0.0-0.8) 06/28/22 07:40 Baso # (Auto) 0.1 10^3/uL (0.0-0.1) 06/28/22 07:40 Nucleated RBC % (auto) 0 % 06/28/22 07:40 Nucleated RBCs # 0.0 /100WBC 06/28/22 07:40 Sodium 137 mmol/L (136-145) 06/28/22 07:40 Potassium 3.6 mmol/L (3.5-5.1) 06/28/22 07:40 Chloride 106 mmol/L (98-107) 06/28/22 07:40 Carbon Dioxide 23 mmol/L (22-29) 06/28/22 07:40 Anion Gap 11.6 (5-19) 06/28/22 07:40 BUN 10 mg/dL (8-23) 06/28/22 07:40 Creatinine 0.9 mg/dL (0.7-1.2) 06/28/22 07:40 GFR Calculation 84.7 mL/min (90-130) L 06/28/22 07:40 Glucose 86 mg/dL (65-115) 06/28/22 07:40 Calculated Osmolality 282 mOsm/kg (285-295) L 06/28/22 07:40 Calcium 8.4 mg/dL (8.5-10.5) L 06/28/22 07:40 Magnesium 2.1 mg/dL (1.7-2.3) 06/28/22 07:40 Total Bilirubin 0.6 mg/dL (0.15-1.2) 06/27/22 04:20 AST 11 U/L (0-40) 06/27/22 04:20 ALT 18 U/L (0-41) 06/27/22 04:20 Alkaline Phosphatase 65 U/L (40-130) 06/27/22 04:20 Total Protein 6.0 g/dL (6.6-8.7) L 06/27/22 04:20 Albumin 3.3 g/dL (3.5-5.2) L 06/27/22 04:20 Globulin 2.7 g/dL (1.3-4.6) 06/27/22 04:20 Lipase 30 U/L (13-60) 06/26/22 15:56 Urine Color Yellow (Yellow) 06/26/22 16:50 Urine Appearance Clear (CLEAR) 06/26/22 16:50 Urine pH 5 (5-7) 06/26/22 16:50 Ur Specific [place] 1.015 (1.005-1.030) 06/26/22 16:50 Urine Protein Neg (Negative) 06/26/22 16:50 Urine Glucose (UA) Norm (Normal) 06/26/22 16:50 Urine Ketones 1+ (Negative) H 06/26/22 16:50 Urine Blood 2+ (Negative) H 06/26/22 16:50 Urine Nitrate Negative (Negative) 06/26/22 16:50 Urine Bilirubin Neg (Negative) 06/26/22 16:50 Urine Urobilinogen Norm mg/dL (Negative) 06/26/22 16:50 Ur Leukocyte Esterase Negative (Negative) 06/26/22 16:50 Urine RBC 0-4 /hpf (0-2) H 06/26/22 16:50 Urine WBC None /hpf (0-5) 06/26/22 16:50 Ur Squamous Epith Cells None /hpf (0-5) 06/26/22 16:50 Amorphous Sediment Not Reportable 06/26/22 16:50 Urine Bacteria Trace /hpf (NONE) 06/26/22 16:50 Hepatitis A IgM Ab Non-reactive (Nonreactive) 06/28/22 07:40 Hep Bs Antigen Non-reactive (Nonreactive) 06/28/22 07:40 Hep Bs Antibody 4.7 (11.5-1000) L 06/28/22 07:40 Hep B Core Total Ab Non-reactive (Nonreactive) 06/28/22 07:40 Hepatitis C Antibody Non-reactive (Nonreactive) 06/28/22 07:40 Procedures Performed None Vitals Last Vital Signs Temp 67.9 F L 06/28/22 12:00 Pulse 59 L 06/28/22 12:00 Resp 17 06/28/22 12:00 BP 106/66 06/28/22 12:00 Pulse Ox 96 06/28/22 12:00 O2 Del Method Room Air 06/28/22 12:00 Discharge Plan Discharge Patient Disposition: Home Condition: Stable Prescriptions: New Vancocin 125 mg capsule 125 mg PO Q6H 10 Days Qty: 40 0RF Discharge Orders: Discharge Order (Routine); Ordered 06/28/22 Ordered By: Michael Skinner Referrals: Mk Aponte DO [Primary Care Provider] - 4-7 days Discharge Diet: Advance as tolerated Discharge Activity: Resume usual activity Patient Instructions: Opioid Safety Activity Restrictions/Additional Instructions: None Discharge Attestations Time Spent in Discharge Care*: less than 30 min Quality Metrics Clinical Quality Measures [ No reported AMI, CVA or VTE this stay] Coding Level of Care Code Acute Code for g Fwd Diagnoses C. difficile colitis A04.72 Sepsis A41.9
[2022-06-28 14:40] VITALS: BP 106/66; PULSE 59; RESP 17; TEMP 36.6; O2SAT 96
== END 2022-06-28 14:41 | disposition home or self-care (01) | DRG 373 ==
LOC: ER 15:25 → MEDSURG 17:39
PROVIDERS: Admitting Provider Surgery; Emergency Provider Family Medicine; PCP Family Medicine; Visit Provider Surgery
DX: A04.72 Enterocolitis due to Clostridium difficile, not specified as recurrent (principal)
CPT/HCPCS: 36415; 74177; 76705; 80048; 80053; 81001; 83690; 83735; 85025; 86705; 86706; 86709; 86803; 87040; 87340; 87493; 87506; 96365; 99285; J2543; J3370; J3490; J7030; Q9967

== ENCOUNTER → 2022-07-05 13:49 | Outpatient (BNVA) | payer MEDICARE, OTHER, SELFPAY | PROVIDERS: PCP Family Medicine; Visit Provider Surgery | DX: K80.20 Calculus of gallbladder without cholecystitis without obstruction (principal); K42.9 Umbilical hernia without obstruction or gangrene; K43.9 Ventral hernia without obstruction or gangrene; A04.72 Enterocolitis due to Clostridium difficile, not specified as recurrent | CPT/HCPCS: 99203 ==

== ENCOUNTER 2022-08-01 08:39 | Outpatient (CLI) | payer MEDICARE, OTHER, SELFPAY | END 2022-08-01 08:40 | disposition home or self-care (01) | LOC: LAB 08:44 | PROVIDERS: PCP Family Medicine; Visit Provider Surgery | DX: A04.72 Enterocolitis due to Clostridium difficile, not specified as recurrent (principal); R10.9 Unspecified abdominal pain | CPT/HCPCS: 83630; 87177; 87209; 87493; 87506 ==

== ENCOUNTER 2022-08-14 05:48 | Day surgery (SDC) | payer MEDICARE, OTHER, SELFPAY ==
[2022-08-11 14:25] VITALS: BMI 27.2
[2022-08-14] VITALS (15 sets, daily range): BP systolic 110–166; BP diastolic 66–102; PULSE 43–61; RESP 18–19; TEMP 36.1–36.4; O2SAT 96–100
[2022-08-14] MEDS: sodium chloride 0.9% 1,000 ML 30 ML IV (06:20)
--- NOTE | 2022-08-14 06:42 | PM.HP ---
Providers/Chief Complaint Primary Care Provider: Mk Aponte DO Chief Complaint: 59334 K80.20 History of Present Illness Tavares Mercado is a 66 year old male here for laparoscopic cholecystectomy Medications/Allergies Home Medications Medication Instructions Recorded Confirmed Last Taken Type No Known Home Medications 08/14/22 08/14/22 Unknown History Allergies Allergy/AdvReac Type Severity Reaction Status Date / Time No Known Allergies Allergy Verified 08/11/22 14:24 PFSH Acute PFSH: Medical History Hx of perforation of tympanic membrane Surgical History History of ear surgery Hx of colonoscopy with polypectomy age 61 Family History Father Cancer prostate cancer Social History Smoking and tobacco status: former smoker Vitals/I&O/Wt Last Vital Signs Temp 97.6 F 08/14/22 06:04 Pulse 58 L 08/14/22 06:04 Resp 18 08/14/22 06:04 BP 110/66 08/14/22 06:04 Pulse Ox 96 08/14/22 06:04 O2 Del Method Room Air 08/14/22 06:06 A&P Assessment and plan (1) Symptomatic cholelithiasis: Plan Laparoscopic cholecystectomy Attestations Medical Necessity Statement*: Home Coding Level of Care Code Acute Code for Chg Fwd Diagnoses Symptomatic cholelithiasis K80.20
[2022-08-14] MEDS: ceFAZolin 2,000 MG in sodium chloride 0.9% (plus) 50 ML 100 MG IV (07:03)
[2022-08-14] MEDS: lidocaine-epi 2% 20 mL INJ INJECTION (07:29)
--- NOTE | 2022-08-14 07:57 | P.OP_ITS ---
Operative Report Date of procedure: August 14, 2022 Pre-op diagnosis: Symptomatic cholelithiasis Post-op diagnosis: same Procedure done: Laparoscopic Cholecystectomy Implants: none Specimens removed/disposition: gallbladder and stones Surgeon: Dr. Michael Skinner D.O. Anesthesia: General Estimated blood loss (mL): 5 Complications: none apparent Brief History: This is a very pleasant 66-year-old gentleman who presented to my office with symptomatic cholelithiasis. Laparoscopic cholecystectomy was indicated. The risk and benefits were explained and documented. Procedure: Patient was wheeled into the operative room and placed on the OR table in a supine position. Abdomen was inspected prepped and draped in usual sterile fashion. Time-out was performed and all present were in agreement. A 15 blade scalp was used to make a stab incision in the left upper quadrant and intra- abdominal insufflation was achieved using a Veress needle. After localizing the tissue incisions were made and a 5 millimeter trocar was placed into the umbilicus as well as 2 in the right upper quadrant. A 12 millimeter trocar was placed in the epigastrium. Gallbladder was grasped and elevated. The triangle of Calot was carefully dissected using blunt dissection and electrocautery until the triangle of Calot clearly identified. The cystic duct was clipped proximally and double clipped distally. The duct was then ligated proximally. The cystic artery was doubly clipped and ligated. The gallbladder was then removed from the liver bed using electrocautery. The gallbladder was removed from the abdomen using an Endo-Catch bag through the epigastric incision. The liver bed was inspected and no bleeding was seen. The abdomen was irrigated and suctioned. All ports removed. Skin was washed and dried. Incisions were closed with 3-0 and 4-O Vicryl in a subcuticular interrupted fashion. Skin glue was applied. Patient tolerated the procedure well.
--- NOTE | 2022-08-14 08:27 | ANES.PREANE2 ---
Pre-Anesthetic Assessment Height/Weight: Height 1.78 m Weight 86.183 kg Temp Pulse Resp BP Pulse Ox O2 Del Method O2 Flow Rate 97.0 F L 50 L 18 145/76 100 Simple Mask 6 08/14/22 08:10 08/14/22 08:25 08/14/22 08:25 08/14/22 08:25 08/14/22 08:25 08/14/22 08:25 08/14/22 08:25 Operation Date: 08/14/22 07:00 Proposed Procedures p Laparoscopic Cholecystectomy 67544 lap espinoza K80.20(Not Applicable) - Michael Skinner DO Familial anesthetic complications: none Was Beta Cristiana taken within 24 hours: N/A Was Clonidine taken within 24 hours: N/A Last intake: Intake Last Liquid Date 08/13/22 Last Liquid Time 17:30 Last Solid Date 08/13/22 Last Solid Time 15:30 Social No alcohol and No tobacco Exam alert, oriented x 3, clear to auscultation bilaterally and regular rate & rhythm Airway Submandibular: within normal limits Cervical ROM: within normal limits Mallampati: Class II Dentition: full History/ROS No significant history except as noted Anesthetic Plan ASA status: 1 Anesthesia: General Medications/Allergies Home Medications Medication Instructions Recorded Confirmed Last Taken Type docusate sodium 100 mg capsule 100 mg PO BID #14 caps 08/14/22 Unknown Rx (DOK) hydrocodone 5 mg-acetaminophen 325 1 tab PO Q6H PRN pain #20 tabs 08/14/22 Unknown Rx mg tablet Allergies Allergy/AdvReac Type Severity Reaction Status Date / Time No Known Allergies Allergy Verified 08/11/22 14:24 Current Medications Generic Name Dose Route Start Last Admin Trade Name Freq PRN Reason Stop Dose Admin Sodium Chloride 1,000 mls @ 30 mls/hr 08/14/22 06:00 08/14/22 07:48 Sodium Chloride 0.9% IV 08/15/22 05:59 Infused .Q24H WENDIE Infusion PFSH Anesthesia Medical History Hx of perforation of tympanic membrane Surgical History History of ear surgery Hx of colonoscopy with polypectomy age 61 Family History Father Cancer prostate cancer Social History Smoking and tobacco status: former smoker Data Anesthesia Cardiac Studies: No Data to Display
[2022-08-14] MEDS: fentaNYL 50 mcg/mL INJ 2mL IVP (08:33)
[2022-08-14] MEDS: HYDROcodone-acetaminophen 5-325 mg Tablet 1 TAB PO (09:06)
--- NOTE | 2022-08-14 09:27 | PC.NURSE ---
0898 Pt returned from [facility]. c/o generalized abd. pain. states feels like i can't get a deep breath. pt given crackers and juice.
[2022-08-14] MEDS: midazolam 1 mg/mL INJ 2 mL 2 MG IVP (09:33)
--- NOTE | 2022-08-14 09:43 | PC.NURSE ---
0930 pt c/o legs shaking. c/o nned to macie.
--- NOTE | 2022-08-14 09:45 | PC.NURSE ---
pt standing at bedside. belching. states feels better.
--- NOTE | 2022-08-14 14:32 | ANE.PACU2 ---
Inpatient post-anesthesia follow up: Airway intact: Yes Vital signs: Temperature 97 F Pulse Rate 51 Respiratory Rate 18 Blood Pressure 129/94 Pulse Oximetry 100 Oxygen Delivery Me thod Room Air Oxygen Flow Rate 6 Fraction of Inspir ed Oxygen Hydration adequate: Yes Nausea and vomiting: No Pain level: 4 Mental status: Baseline
== END 2022-08-14 10:31 | disposition home or self-care (01) ==
PROVIDERS: PCP Family Medicine; Visit Provider Surgery
PROC: 0FT44ZZ Resection of Gallbladder, Percutaneous Endoscopic Approach (ICD-10-PCS; CPT 47562; principal; 2022-08-14 07:00)
DX: K80.10 Calculus of gallbladder with chronic cholecystitis without obstruction (principal); Z87.891 Personal history of nicotine dependence
CPT/HCPCS: 47562; 88304; J0690; J1100; J1885; J2250; J2405; J2704; J2710; J3010; J3490; J7030

== ENCOUNTER → 2022-09-05 08:11 | Outpatient (BNVA) | payer MEDICARE, OTHER, SELFPAY | PROVIDERS: PCP Family Medicine; Visit Provider Surgery | DX: Z98.890 Other specified postprocedural states (principal); Z90.49 Acquired absence of other specified parts of digestive tract | CPT/HCPCS: 99024 ==

== ENCOUNTER 2022-11-21 18:31 | Inpatient (IN) | payer MEDICARE, OTHER, SELFPAY ==
[2022-11-21] VITALS (18 sets, daily range): BP systolic 97–133; BP diastolic 62–97; PULSE 52–91; RESP 13–27; TEMP 36.1–36.9; O2SAT 94–100; BMI 25.8; BMI 25.9
--- NOTE | 2022-11-21 18:31 | XRR_ITS ---
PROCEDURE INFORMATION: Exam: XR Chest Exam date and time: 11/21/2022 8:39 PM Age: 67 years old Clinical indication: Pain; Chest pressure; Additional info: Cp TECHNIQUE: Imaging protocol: Radiologic exam of the chest. Views: 1 view. COMPARISON: CT abdomen pelvis w con* [id number] 06/27/2022 3:07 PM FINDINGS: Lungs: Unremarkable. No consolidation. Pleural spaces: Unremarkable. No pleural effusion. No pneumothorax. Heart/Mediastinum: Unremarkable. No cardiomegaly. Upper chest defibrillator pad. Bones/joints: Unremarkable. XR/XR chest 1V portable [id number] IMPRESSION: No acute findings.
--- NOTE | 2022-11-21 18:33 | ECG_ITS ---
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 Measurements Intervals [place] Rate: 60 P: 0 NH: 0 QRS: 68 QRSD: 100 T: 86 QT: 424 QTc: 425 Interpretive Statements ATRIAL FIBRILLATION MARKED ST ELEVATION, CONSIDER INFERIOR INJURY [MARKED ST ELEVATION W/O NORMALLY INFLECTED T-WAVE IN II/aVF] ACUTE AL No previous ECG available for comparison Electronically Signed On 11-21-2022 21:13:07 CDT by Horace Villanueva M.D. [id number]
--- NOTE | 2022-11-21 18:33 | XACV_ITS ---
Exam Room: 2 Ht: 178 cm Wt: 84 kg BSA: 2.05 m2 Gender: Male : 1955 Any Known Allergies: No known allergies Exam Priority: Routine Indication(s): - Acute inferior NH Procedure(s): Procedure Description: Diagnostic procedure Procedure Description: PCI procedure Procedure Description: Left Heart Catheterization Procedure Description: Drug Eluting Coronary Stent Procedure Description: PTCA Procedure Description: Coronary Thrombectomy Procedure Description: Miscellaneous Procedure Description: Angio-Seal Procedure Description: ACT Procedure Description: Coronary Angiography Diagnostic Cath Status: Emergency Diagnostic Findings * Left Main has no significant disease. * Left Anterior Descending has no significant disease. * Circumflex has no significant disease. * Proximal Right Coronary Artery to Mid Right Coronary Artery: total thrombotic occlusion, LULU: 0 flow. This is the culprit vessel for stemi. * Coronary angiography shows right dominance. PCI Status: Emergency PCI Indication: Immediate PCI for STEMI Interventional Findings * Procedure detail: We engaged RCA with JR4 guide catheter. IV heparin was administered to maintain anticoagulation. 0.014 run-through guidewire was used to cross the totally occluded segment and was put in distal vessel. We predilated the stenosis with 2.5 x 8 mm semicompliant balloon. This demonstrated very heavy burden of thrombus from proximal to distal vessel. We used penumbra mechanical thrombectomy to aspirate thrombus. This reduced thrombus burden significantly. We then proceeded with placement of 3.5 x 30 mm resolute [place] drug-eluting stent. At this time we performed final angiogram that showed excellent stent expansion, no residual stenosis and LULU-3 flow. Guidewire and guide catheter were removed. Patient left the Director Packaging in a stable condition.. * Proximal Right Coronary Artery to Mid Right Coronary Artery: 100% stenosis treated with a AB TREK 2.50X8 RX BALLOON, AB TREK 2.50X8 RX BALLOON, and MDT R [place] 3.5X30 KAYLEEN. 0% residual stenosis, LULU: 3 flow. Conclusions 1. Total thrombotic occlusion 2. of proximal to mid RCA s/p successful revascularization with mechanical thrombectomy 3. and 4. stent x1 placement.. 5. Proximal Right Coronary Artery to Mid Right Coronary Artery was treated with a Balloon, Balloon, and Drug Eluting Stent. Recommendations * Dual antiplatelet therapy with aspirin and heparin for atleast 1 year. * High intensity statin therapy. * Aggrastat for 6 hours. * Transfer to ICU. Interventional RX Recommendation: PCI w/o planned CABG Diagnostic RX Recommendation: PCI w/o planned CABG Anticoagulation: Heparin Pressures Phase:Rest AO : 63 / 47 ( 56 ) @ 2:58:16 PM 68 / 54 ( 61 ) @ 2:58:16 PM 92 / 69 ( 81 ) @ 2:58:16 PM 124 / 71 ( 93 ) @ 2:58:16 PM 126 / 71 ( 94 ) @ 2:58:16 PM LV : 133 / -4 / 20 @ 2:58:16 PM 135 / -2 / 22 @ 2:58:16 PM Valves Phase:DefaultPhase AV : 12.0 @ 7:58:16 PM 12.0 @ 7:58:16 PM AV Mean Gradient: 13.0 @ 7:58:16 PM 13.0 @ 7:58:16 PM Clinical Evaluation EBL: 5mL-10mL Procedural Details Procedure started. Pre-Procedure Time Out. Identified patient by full name and date of as verbalized by the patient/guarantor. Does the consent match the physician's order: N/A Emergent; Informed Consent not obtained due to time critical life threat. Accurate & Complete Informed Consent: N/A Emergent; Informed Consent not obtained due to time critical life threat. Inpatient/Outpatient History & Physical on Chart: N/A Emergent; Informed Consent not obtained due to time critical life threat. If H&P is completed, is and addenduem needed: N/A Emergent; Informed Consent not obtained due to time critical life threat; If yes, is the addendum complete: N/A Emergent; Informed Consent not obtained due to time critical life threat. Visualize and Verify Site with Patient/Guarantor: N/A. Relevant Radiology Images available: N/A Emergent; Informed Consent not obtained due to time critical life threat. Pre-op teaching completed and patient verbalized understanding. The risks, benefits, and alternatives of sedation and/or procedure were discussed by physician. The patient agrees to continue. [facility] Clinical Fraility Score: 3: Managing Well. Director Packaging Indications: ACS <= 24 hours. Chest Pain Symptom Assessment: Typical Angina Symptoms. Cardiovascular Instability: Yes, if yes, Persistant Ischemic Symptoms. Correct patient, site and procedure confirmed by cath team. Current diagnosis: STEMI. PERRLA. Strong, equal hand rehab aide bilaterally. Lungs clear x 5 lobes. IV Site on Arrival: 18 gauge in the left anticubital. IV Fluids: 0.9% NaCl at KVO. 0 mL infused prior to chemical laboratory chief. Pre Procedural Pulses: bilateral radial was 3+. Oxygen started at 2liters/min via nasal canula. right groin was prepped with chloroprep then draped in the usual sterile fashion. right radial was prepped with chloroprep then draped in the usual sterile fashion. Baseline sample Acquired. HR: 62 BPM. Physician notified. Patient's family in the chemical laboratory chief waiting room. Dr. Watson will update at the competion of the procedure. Equipment: 6F - Radial. Cardiac Cath Pack. ACIST Manifold Kit Model BT 2000. Heparinized Saline (2 units/mL), 1000 mL bag. Physician arrived. Physician scrubbed in. Immediate Pre-Procedure Time Out. Correct Patient: Yes; Correct Procedure: N/A Emergent; Informed Consent not obtained due to time critical life threat; Correct Site: N/A Emergent; Informed Consent not obtained due to time critical life threat; Correct Patient Position: N/A Emergent; Informed Consent not obtained due to time critical life threat; Correct Supplies: N/A Emergent; Informed Consent not obtained due to time critical life threat; Dried Flammable Prep: N/A Emergent; Informed Consent not obtained due to time critical life threat; Blood Products Available: N/A Emergent; Informed Consent not obtained due to time critical life threat;. Lidocaine 1% infiltrated to the right radial. Arterial access obtained. Unable to thread wire. Needle and wire out. Dr. Watson holding manual pressure. TR band placed. Hemostasis obtained. Unable to obtain radial access. MD attempting to gain access in the Femoral artery. Lidocaine 1% infiltrated to the right groin. Arterial access obtained with micropuncture set using ultrasound guidance. 6 cook islander JR 4 guide catheter was inserted over the wire. Runthrough guidewire was advanced through the guide catheter to lesion in the prox RCA. Inflation number : 1 A AB TREK 2.50X8 RX BALLOON was prepped and advanced across the Prox RCA , then inflated to 8 RANDOLPH for 0:18 seconds. Inflation number : 2 A AB TREK 2.50X8 RX BALLOON was prepped and advanced across the Prox RCA , then inflated to 8 RANDOLPH for 0:15 seconds. Balloon out. Results checked. Penumbra Cat RX aspiration catheter in OTW. Aspiration of the RCA performed. Penumbra Cat RX aspiration catheter out OTW. Penumbra Cat RX aspiration catheter in OTW. Aspiration of the RCA performed. Penumbra Cat RX aspiration catheter out OTW. Inflation Number : 3 Teena Vides [place] 3.5X30 KAYLEEN -Lot Number# [id number] was prepped and advanced across the Prox RCA. The stent was deployed at 12 RANDOLPH for 0:18 seconds. Exp. 2023-09-02. Stent balloon out over wire. Results checked. Wire out. Results checked. ACT drawn. Results 343 seconds. Therapeutic limits - pre-heparin administration 90-150 seconds and monitoring heparin during a vascular procedure >250 seconds. Guide catheter out. A 5 cook islander JL4 catheter in over wire. Multiple views taken of left coronary artery. Catheter out over the wire. A 5 cook islander Angled Pig catheter in over wire. EDP Sample taken: LV 133/-5,20; HR: 84 BPM; SpO2: 100%. Pullback taken: LV 135/-3,22; AO 124/71(93); Mean: 13mmHg, Peak to Peak: 12mmHg, SEP: 25sec/min; HR: 89 BPM; SpO2: 100%. Catheter out over the wire. ACT drawn. Results 264 seconds. Therapeutic limits - pre-heparin administration 90-150 seconds and monitoring heparin during a vascular procedure >250 seconds. A Right femoral angiogram was performed to determine safe placement of closure device. A Angio-Seal VIP ([facility]. Lam) was successful obtaining hemostatsis at the Right Femoral artery insertion site. Lot # [id number]. Exp. 2023-05-27. No signs or symptoms of hematoma noted. Sterile dressing applied per usual sterile fashion. Dr. Watson scrubbed out. PCI Indication : Immediate PCI for STEMI. Post Procedure: bilateral dorsalis pedis pulse Doppled. Post Procedure: bilateral posterior tibial pulse Doppled. PERRLA. Strong, equal hand rehab aide bilaterally. No VTE prophylaxis required. Medication's Wasted: Other = Fentanyl 50 mcg. Total IV fluids: 600 mL. PCI Indication: STEMI. Post-op diagnosis: Thrombectomy and PCI of the Mid RCA. Complications: none. Estimated blood loss: 5mL-10mL. Responsiveness - Normal response to verbal stimuli; alert and oriented, PERRLA. Airway - Unaffected, no intervention required; spontaneous ventilation. Circulation: W/N/L, pulses unchanged. Nausea/Vomiting: No. Procedure completed. Patient transferred by bed to ICU. Vital chart was stopped. Access Site Site: Right Femoral artery Sheath Size: 6 Fr Hemostasis Method: Angio-Seal VIP (St. Lam) Hemostasis Success: Successful Procedure Medications Start: 7:03 PM Stop: 7:03 PM Medication: Versed Amount: 1 mg Route: I.V. Start: 7:03 PM Stop: 7:03 PM Medication: Fentanyl Amount: 50 mcg Route: I.V. Start: 7:08 PM Stop: 7:08 PM Medication: Heparin Amount: 4000 units Route: I.V. Start: 7:09 PM Stop: 7:09 PM Medication: 0.9% Saline Amount: 250 ml Route: I.V. bolus Start: 7:21 PM Stop: 7:21 PM Medication: Heparin Amount: 1000 units Route: I.V. Start: 7:23 PM Stop: 7:23 PM Medication: 0.9% Saline Amount: 250 ml Route: I.V. bolus Start: 7:27 PM Stop: 7:27 PM Medication: Neosynephrine Amount: 40 mcg Route: I.V. Start: 7:27 PM Stop: 7:27 PM Medication: Aggrastat 12.5 mg/250 mL Amount: 42 ml Route: I.V. bolus Start: 7:27 PM Stop: 7:27 PM Medication: Aggrastat 12.5 mg/250 mL Amount: 15.1 ml/hr Route: I.VRocío chong I, the attending physician, have reviewed and verified all procedure medications. Yes, all medications given per verbal order Report Signatures Finalized by Claudy Watson MD on 11/21/2022 08:42 PM
--- NOTE | 2022-11-21 18:37 | ED_ITS ---
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 He called EMS EMS called STEMI from the field his EKG here does show an obvious ST elevation [place]. Patient was given nitro and aspirin in route he states his pain has improved he has no history of known heart disease non-smoker. Associated symptoms: Deny abdominal pain, dyspnea, fever(s), nausea or vomiting Review of Systems Const: Denies: fever(s) or chills ENMT: Denies: throat pain or dental pain Card: Reports: chest pain Resp: Denies: dyspnea GI: Denies: abdominal pain, nausea, vomiting or diarrhea Musc: Denies: neck pain or back pain Skin/Breast: Denies: rash Neuro: Denies: headache(s) PFSH ED PFSH: Medical History Hx of perforation of tympanic membrane Surgical History History of ear surgery Hx laparoscopic cholecystectomy 08/14/22 Hx of colonoscopy with polypectomy age 61 Family History Father Cancer prostate cancer Social History Smoking and tobacco status: former smoker Physical Exam Const: COMMON NORMALS: patient oriented x3 GENERAL APPEARANCE: ill appearing HENMT: COMMON NORMALS: normocephalic and atraumatic HEAD & SCALP: normocephalic and atraumatic Eye: COMMON NORMALS: Equal, round and reactive pupils present and EOMs intact bilaterally PUPIL: Yes Equal, round and reactive pupils present Neck/C-Spine: COMMON NORMALS: full ROM and supple Chest: COMMONS NORMALS: normal inspection of the chest and normal palpation of entire chest wall Resp: COMMON NORMALS: normal respiratory effort Cardio: COMMON NORMALS: regular rate, regular rhythm and No murmurs present (Cardio) RATE: regular rate RHYTHM: regular rhythm GI: INSPECTION: Yes normal to inspection Extremity: COMMON NORMALS: normal to inspection and full ROM Neuro: COMMON NORMALS: patient oriented x3, moves all extremities and no focal motor deficits Psych: COMMON NORMALS: mental status grossly normal, Normal thought process present and cooperative THOUGHT PROCESS: Normal thought process present Skin: COMMON NORMALS: no rashes or lesions noted and no wounds GENERAL SKIN EXAM: no rashes or lesions noted Course Vital Signs: Vital signs: Vital Signs Temperature 97.0 F L 11/21/22 18:30 Pulse Rate 77 11/21/22 18:30 Respiratory Rate 20 H 11/21/22 18:30 Blood Pressure 105/62 11/21/22 18:30 Pulse Oximetry 100 11/21/22 18:30 Oxygen Delivery Me thod Nasal Cannula 11/21/22 18:30 Oxygen Flow Rate 2.5 11/21/22 18:30 MDM - Chest Pain Medical Decision Making Patient presents here ST elevation [facility] Research Development Director has been in activated patient is given Plavix and heparin Medical Records I reviewed the patient's medical records. Lab Data I reviewed the patient's lab results. 11/21/22 18:15 11/21/22 18:15 Laboratory Results WBC 11.58 10^3/uL (3.29-11.43) H 11/21/22 18:15 RBC 5.08 10^6/uL (3.85-5.65) 11/21/22 18:15 Hgb 14.90 g/dL (11.27-16.99) 11/21/22 18:15 Hct 44.9 % (37-53) 11/21/22 18:15 MCV 88.4 fl (82-101) 11/21/22 18:15 MCH 29.3 pg (27-33) 11/21/22 18:15 MCHC 33.2 g/dL (30-55) 11/21/22 18:15 RDW 12.7 % (12.1-15.1) 11/21/22 18:15 Plt Count 248 10^3/cmm (157-399) 11/21/22 18:15 MPV 9.8 fL (7.4-10.4) 11/21/22 18:15 Neut % (Auto) 55.6 % 11/21/22 18:15 Lymph % (Auto) 31.8 % 11/21/22 18:15 [place] % (Auto) 9.8 % 11/21/22 18:15 Eos % (Auto) 1.8 % 11/21/22 18:15 Baso % (Auto) 0.7 % 11/21/22 18:15 Neut # (Auto) 6.45 10^3/uL (1.8-7.7) 11/21/22 18:15 Lymph # (Auto) 3.7 10^3/uL (0.8-4.8) 11/21/22 18:15 [place] # (Auto) 1.1 10^3/uL (0.2-0.9) H 11/21/22 18:15 Eos # (Auto) 0.2 10^3/uL (0.0-0.8) 11/21/22 18:15 Baso # (Auto) 0.1 10^3/uL (0.0-0.1) 11/21/22 18:15 Nucleated RBC % (auto) 0 % 11/21/22 18:15 Nucleated RBCs # 0.0 /100WBC 11/21/22 18:15 Sodium 142 mmol/L (136-145) 11/21/22 18:15 Potassium 3.1 mmol/L (3.5-5.1) L 11/21/22 18:15 Chloride 103 mmol/L (98-107) 11/21/22 18:15 Carbon Dioxide 25 mmol/L (22-29) 11/21/22 18:15 Anion Gap 17.1 (5-19) 11/21/22 18:15 BUN 20 mg/dL (8-23) 11/21/22 18:15 Creatinine 1.4 mg/dL (0.7-1.2) H 11/21/22 18:15 GFR Calculation 50.7 mL/min (90-130) L 11/21/22 18:15 Glucose 119 mg/dL (65-115) H 11/21/22 18:15 Calculated Osmolality 298 mOsm/kg (285-295) H 11/21/22 18:15 Calcium 9.4 mg/dL (8.5-10.5) 11/21/22 18:15 Total Bilirubin 0.4 mg/dL (0.15-1.2) 11/21/22 18:15 AST 18 U/L (0-40) 11/21/22 18:15 ALT 20 U/L (0-41) 11/21/22 18:15 Alkaline Phosphatase 55 U/L (40-130) 11/21/22 18:15 Troponin T Baseline 18 ng/L (0-15) H 11/21/22 18:15 Total Protein 6.3 g/dL (6.6-8.7) L 11/21/22 18:15 Albumin 4.2 g/dL (3.5-5.2) 11/21/22 18:15 Globulin 2.1 g/dL (1.3-4.6) 11/21/22 18:15 All radiology interpretation(s) finalized by discharge Discharge Plan Discharge Patient Disposition: Admitted As Inpatient Clinical Impression: ST elevation myocardial infarction (STEMI) Condition: Stable Coding Level of Care Code ED Health Care Analyst for Meliton Adrian
[2022-11-21 18:39] LABS: Basophils # 0.1 10^3/uL (0.0-0.1); Basophils % 0.7 %; Eosinophils # 0.2 10^3/uL (0.0-0.8); Eosinophils % 1.8 %; Hematocrit 44.9 % (37-53); Lymphocytes # 3.7 10^3/uL (0.8-4.8); Lymphocytes % 31.8 %; Mean Corpuscular HGB Conc 33.2 g/dL (30-55); Mean Corpuscular Hemoglobin 29.3 pg (27-33); Mean Corpuscular Volume 88.4 fl (82-101); Mean Platelet Volume 9.8 fL (7.4-10.4); Monocytes # 1.1 10^3/uL (0.2-0.9); Monocytes % 9.8 %; Neutrophils # 6.45 10^3/uL (1.8-7.7); Neutrophils % 55.6 %; Nucleated Red Blood Cells % 0 %; Platelet Count 248 10^3/cmm (157-399); Red Blood Count 5.08 10^6/uL (3.85-5.65); Red Cell Distribution Width 12.7 % (12.1-15.1); White Blood Count 11.58 10^3/uL (3.29-11.43)
[2022-11-21] MEDS: clopidogrel 300 mg Tablet 600 MG PO (18:39)
[2022-11-21] MEDS: heparin 5,000 unit/mL INJ 1 mL 4000 UNIT IVP (18:41)
[2022-11-21] MEDS: sodium chloride 0.9% 1,000 ML 999 ML IV (18:43)
--- NOTE | 2022-11-21 18:44 | PM.HP ---
Providers/Chief Complaint Admitting Physician: Claudy Watson MD/ Interventional Cardiology Primary Care Provider: Mk Aponte DO Chief Complaint: STEMI History of Present Illness Tavares Mercado is a 67 year old male with no significant prior cardiac history has presented to hospital with 1-2 hours of severe left-sided chest pain radiating to left arm and diaphoresis. EKG performed shows inferior wall ST elevation [place]. Cardiac Ethnic Origins Teacher was emergently activated and patient brought to the Ethnic Origins Teacher. Review of Systems Const: Denies: fever(s) or chills ENMT: Denies: throat pain or dental pain Card: Reports: chest pain Resp: Denies: dyspnea GI: Denies: abdominal pain, nausea, vomiting or diarrhea Musc: Denies: neck pain or back pain Skin/Breast: Denies: rash Neuro: Denies: headache(s) Medications/Allergies Home Medications Medication Instructions Recorded Confirmed Last Taken Type No Known Home Medications 09/05/22 09/05/22 Unknown History Allergies Allergy/AdvReac Type Severity Reaction Status Date / Time No Known Allergies Allergy Verified 09/05/22 08:13 PFSH Acute PFSH: Medical History Hx of perforation of tympanic membrane Surgical History History of ear surgery Hx laparoscopic cholecystectomy 08/14/22 Hx of colonoscopy with polypectomy age 61 Family History Father Cancer prostate cancer Social History Smoking and tobacco status: former smoker Vitals/I&O/Wt Last Vital Signs Temp 97.0 F L 11/21/22 18:30 Pulse 77 11/21/22 18:30 Resp 20 H 11/21/22 18:30 BP 105/62 11/21/22 18:30 Pulse Ox 100 11/21/22 18:30 O2 Del Method Nasal Cannula 11/21/22 18:30 O2 Flow Rate 2.5 11/21/22 18:30 Weight last 48 hrs Weight 180 lb Physical Exam Narrative: GENERAL: Patient is alert, awake and oriented x3. [] NECK: No jugular vein distension. [] HEENT: No cyanosis. No icterus. No pallor. [] HEART: Regular S1 and S2. No murmur, rub or gallop. [] LUNGS: Clear to auscultate bilaterally. [] CENTRAL NERVOUS SYSTEM: Grossly nonfocal. [] EXTREMITIES: Lower extremities with no edema Data 11/21/22 18:15 11/21/22 18:15 A&P Assessment and plan (1) ST elevation myocardial infarction (STEMI): Plan Patient has presented with acute inferior wall ST elevation [place]. Cardiac Ethnic Origins Teacher was activated emergently and patient brought to Ethnic Origins Teacher. Plan for coronary angiogram with possible PCI. Patient has been loaded with aspirin, Plavix and given heparin bolus. Echocardiogram ordered. Postprocedure patient will be transferred to ICU. Attestations Medical Necessity Statement*: Care expected to cross 2 midnights. Patient has presented with acute inferior wall ST elevation [place] and going for emergent coronary angiogram with possible Percutaneous coronary intervention Coding Level of Care Code Acute Code for Meliton Adrian Diagnoses ST elevation myocardial infarction (STEMI) I21.3
[2022-11-21] MEDS: sodium chloride 0.9% 500 ML 999 ML IV (18:47)
[2022-11-21 19:02] LABS: Troponin(5th) Baseline 18 ng/L (0-15)
[2022-11-21 19:14] LABS: Alanine Aminotransferase 20 U/L (0-41); Albumin Level 4.2 g/dL (3.5-5.2); Alkaline Phosphatase 55 U/L (40-130); Anion Gap 17.1 (5-19); Aspartate Amino Transferase 18 U/L (0-40); Blood Urea Nitrogen 20 mg/dL (8-23); Calcium 9.4 mg/dL (8.5-10.5); Carbon Dioxide 25 mmol/L (22-29); Chloride 103 mmol/L (98-107); Globulin 2.1 g/dL (1.3-4.6); Glomerular Filtration Rate 50.7 mL/min (90-130); Glucose 119 mg/dL (65-115); Osmolality Calculated 298 mOsm/kg (285-295); Potassium 3.1 mmol/L (3.5-5.1); Sodium 142 mmol/L (136-145); Total Bilirubin 0.4 mg/dL (0.15-1.2); Total Protein 6.3 g/dL (6.6-8.7)
--- NOTE | 2022-11-21 19:14 | PC.NURSE ---
Addendum entered by Trinh Higgins RN 11/21/22 19:33: 4 of Zofran was also given enroute. blood bank specialist arrived in room at 1836 Original Note: pt arrived at the ED after a STEMI alert was called at 181. pt was diaphoretic and appeared SOB upon arrival. pt was working outside digging all day and around [id number] pt started having pain in his left shoulder that radiated down his left arm. pt had 1 nitro and 324 of ASA prior to arrival. . pt denies hx of smoking, cardiac disease, but per has a family hx of heart disease. pt is having minimum pain at this time. pt arrival 182; initial vitals are BP 105/62, HR 62, SpO2 97% on 2.5L NC, RR 22. pt initial hospital EKG was completed at 1833 pt was given 4000 of Heparin at 1842 pt was given 600 of Plavix at 1844 Tractor Trailer Truck Driver arrived at 1848 pt departed ED to laborer livestock at 1851
[2022-11-21] MEDS: phenylephrine inj 25 MG in sodium chloride 0.9% 250 ML 24.24 MG IV (20:02)
[2022-11-21] MEDS: sodium chloride 0.9% 1,000 ML 100 ML IV (20:02)
--- NOTE | 2022-11-21 20:05 | USCV_ITS ---
Tavares Mercado Age: 67 Gender: M : 1955 Exam Date: 11/21/2022 23:15 Ordering Phys: Claudy Watson M.D ([email or web address]) Technologist: MICHAEL Exam Location: [facility] Indication: STEMI s/p cardiac cath. No prior history of cardiac intervention BP: 127 / 84 HR: 80 Rhythm: Sinus Technical Quality: Adequate MEASUREMENTS (Male / Female) Normal Values 2D ECHO LV Diastolic Diameter PLAX 3.0 cm 4.2 - 5.9 / 3.9 - 5.3 cm LV Systolic Diameter PLAX 2.1 cm IVS Diastolic Thickness 1.4 cm 0.6 - 1.0 / 0.6 - 0.9 cm IVS Systolic Thickness 2.5 cm LVPW Diastolic Thickness 1.5 cm 0.6 - 1.0 / 0.6 - 0.9 cm LVPW Systolic Thickness 1.8 cm LVOT Diameter 2.3 cm LV Ejection Fraction 2D Teich 57.6 % LV Ejection Fraction MOD 2C 78.6 % LV Ejection Fraction 2C AL 79.3 % LA Diameter 3.2 cm LA Width 2.3 cm LA Height 3.8 cm RA Width 3.0 cm RA Height 3.4 cm Aorta at Sinotubular Diameter 3.9 cm IVC Diameter 2.1 cm M-MODE Aortic Annulus Diameter 3.7 cm LA Ao Ratio MM 0.9 MV E Point Septal Separation 0.6 cm DOPPLER AV Peak Velocity 99.0 cm/s LVOT Peak Velocity 111.0 cm/s AV Area Cont Eq vti 4.0 cm squared AV Area Cont Eq pk 4.5 cm squared MV Peak Velocity 85.0 cm/s MV Area PHT 3.0 cm squared Mitral E to A Ratio 0.8 MV E' Velocity 37.0 cm/s Mitral E to MV E' Ratio 6.5 Mitral E to LV E' Lateral Ratio 5.1 Mitral E to LV E' Septal Ratio 9.2 TV Peak E Velocity 49.0 cm/s PV Peak Velocity 80.0 cm/s RV Acceleration Time 0.1 s RV Ejection Time 0.3 s RV AcT/ET 0.3 FINDINGS Left Ventricle Ventricle normal in size. LV systolic function is normal with EF of 55 to 60%. No regional wall motion abnormalities are seen. Right Ventricle Grossly normal Right Atrium Normal in size Left Atrium Normal in size Mitral Valve Structurally normal mitral valve. Aortic Valve Structurally normal aortic valve. No significant stenosis or regurgitation Tricuspid Valve Trace tricuspid regurgitation Pulmonic Valve Not well visualized Pericardium Normal Aorta Grossly normal IVC Dilated CONCLUSIONS LV systolic function is normal with EF 55 to 60%. Trace tricuspid regurgitation. IVC appears dilated. No button studies are available Claudy Watson MD (Electronically Signed) Final Date: 22 November 2022 09:01 S
--- NOTE | 2022-11-21 20:13 | ECG_ITS ---
[facility] Test Date: 2022-11-21 Pat Name: Tavares Mercado Department: Room: [facility]05 Gender: Male Net Trainer: : 1955 Requested By: Gato Gardner Order Number: [id number] Garcia MD: Horace Villanueva M.D. Measurements Intervals [place] Rate: 79 P: 61 W[place]: 259 QRS: 27 QRSD: 92 T: 77 QT: 369 QTc: 424 Interpretive Statements SINUS RHYTHM WITH SINUS ARRHYTHMIA WITH FIRST DEGREE AV BLOCK Acute inferior wall WA with features of reciprocal ischemia in the anterior wall and high lateral wall region ACUTE WA Compared to ECG 11/21/2022 18:33:50 First degree AV block now present Atrial fibrillation no longer present ST (T wave) deviation no longer present Myocardial infarct finding no longer present Electronically Signed On 11-21-2022 21:20:40 CDT by Horace Villanueva M.D. [email or web address] [email or web address] [email or web address] [email or web address]/store/[id number]
[2022-11-21] MEDS: atorvastatin 40 mg Tablet 80 MG PO (20:44)
[2022-11-21] MEDS: lidocaine 1% 5 ML in potassium chloride premix 100 ML 26.25 ML IV (21:45)
[2022-11-21] MEDS: potassium chloride ER 20 mEq Tablet PO (21:47)
[2022-11-21 22:01] LABS: Troponin 5 2HR 941.2 ng/L (0-15); Troponin 5 2HR Delta 923.2 ABS# (0-10)
--- NOTE | 2022-11-21 22:37 | PC.NURSE ---
Arrival to ICU: Pt arrived to ICU 5 @2002 w/ industrial laborer team at bedside. Magdy running @40mcg/min, see MAR for titration off magdy. NS running @100ml/hr. Aggrastat infusion to finish @0200. No pain or discomfort noted. See Post Cardiac Cath Flow Sheet for assessments of R. Groin and R. Wrist.
--- NOTE | 2022-11-21 23:04 | PC.NURSE ---
Potassium 3.1: Called Dr. Watson @[id number] about low potassium. New order for 40IV Potassium and 20 PO Potassium NOW.
[2022-11-21 23:07] LABS: Partial Thromboplastin Time 79.4 SECONDS (23.9-36.7)
[2022-11-22] VITALS (28 sets, daily range): BP systolic 87–154; BP diastolic 57–91; PULSE 52–78; RESP 14–22; TEMP 37; O2SAT 93–99
--- NOTE | 2022-11-22 00:31 | ECG_ITS ---
[facility] Test Date: 2022-11-22 Pat Name: Tavares Mercado Department: Room: [facility]05 Gender: Male Government Minister: : 1955 Requested By: Gato Gardner Order Number: [id number] Garcia MD: Horace Villanueva M.D. Measurements Intervals [place] Rate: 56 P: 65 GA: 195 QRS: -30 QRSD: 102 T: 29 QT: 423 QTc: 410 Interpretive Statements SINUS BRADYCARDIA Compared to ECG 11/21/2022 20:13:13 Sinus rhythm no longer present Sinus arrhythmia no longer present First degree AV block no longer present Myocardial infarct finding no longer present Possible ischemia no longer present Electronically Signed On 11-22-2022 20:55:27 CDT by Horace Villanueva M.D. [email or web address] sunflower medical centerKythera Biopharmaceuticalshenry county hospitalZiarco Pharma/store/OM/[id number]
[2022-11-22 02:35] LABS: Basophils % 0.2 %; Hematocrit 42.1 % (37-53); Lymphocytes # 0.7 10^3/uL (0.8-4.8); Lymphocytes % 6.5 %; Mean Corpuscular HGB Conc 32.5 g/dL (30-55); Mean Corpuscular Hemoglobin 29.8 pg (27-33); Mean Corpuscular Volume 91.7 fl (82-101); Mean Platelet Volume 9.7 fL (7.4-10.4); Monocytes # 0.5 10^3/uL (0.2-0.9); Monocytes % 4.9 %; Neutrophils # 9.69 10^3/uL (1.8-7.7); Nucleated Red Blood Cells % 0 %; Platelet Count 192 10^3/cmm (157-399); Red Blood Count 4.59 10^6/uL (3.85-5.65); Red Cell Distribution Width 13.1 % (12.1-15.1)
[2022-11-22 03:02] LABS: Anion Gap 15.3 (5-19); Blood Urea Nitrogen 21 mg/dL (8-23); Calcium 8.7 mg/dL (8.5-10.5); Carbon Dioxide 24 mmol/L (22-29); Chloride 104 mmol/L (98-107); Glomerular Filtration Rate 84.4 mL/min (90-130); Glucose 127 mg/dL (65-115); Osmolality Calculated 293 mOsm/kg (285-295); Potassium 4.3 mmol/L (3.5-5.1); Sodium 139 mmol/L (136-145); Troponin 5 6HR 2705 ng/L (0-15); Troponin 5 6HR Delta 2687 ng/L (0-12)
[2022-11-22] MEDS: sodium chloride 0.9% 1,000 ML 100 ML IV (05:35)
[2022-11-22] MEDS: aspirin 81 mg EC Tablet PO (08:15)
[2022-11-22] MEDS: clopidogrel 75 mg Tablet PO (08:15)
[2022-11-22] MEDS: metoprolol succinate ER (24 HR) 25 mg Tablet 12.5 MG PO (08:17)
--- NOTE | 2022-11-22 08:40 | PM.PN ---
Subjective Subjective: Patient is doing well. No chest pain Vitals/I&O/Wt Last Vital Signs Temp 98.6 F 11/22/22 08:00 Pulse 62 11/22/22 08:00 Resp 19 H 11/22/22 08:00 BP 112/70 11/22/22 08:00 Pulse Ox 97 11/22/22 08:00 O2 Del Method Room Air 11/22/22 06:00 O2 Flow Rate 2.5 11/21/22 18:30 11/21/22 11/22/22 11/22/22 22:59 06:59 14:59 Intake Total 2211.413 / 2211.413 948.333 / 3159.746 Output Total 500 / 500 300 / 300 Balance 2211.413 / 2211.413 448.333 / 2659.746 -300 / -300 Weight last 48 hrs Weight 180 lb 6.4 oz Weight 180 lb Physical Exam Narrative: GENERAL: Patient is alert, awake and oriented x3. [] NECK: No jugular vein distension. [] HEENT: No cyanosis. No icterus. No pallor. [] HEART: Regular S1 and S2. No murmur, rub or gallop. [] LUNGS: Clear to auscultate bilaterally. [] CENTRAL NERVOUS SYSTEM: Grossly nonfocal. [] EXTREMITIES: Lower extremities with no edema Data 11/22/22 02:24 11/22/22 02:24 A&P Assessment and plan (1) ST elevation myocardial infarction (STEMI): Plan Patient is stable. Continue aspirin , plavix and atorvastatin Metoprolol started ECHO shows normal LV systolic function If patient stays stable by tomorrow, we will discharge home Attestations Medical Necessity Statement*: Care expected to cross 2 midnights. Patient had PCI of RCA yesterday. will observe overnight and if stays stable, can be discharged home Coding Level of Care Code Acute Code for [facility] Diagnoses ST elevation myocardial infarction (STEMI) I21.3
--- NOTE | 2022-11-22 18:03 | PC.NURSE ---
Patient resting in bed, no complaints all shift, patient was up ambulating halls. Very cooperative with staff.
[2022-11-22] MEDS: atorvastatin 40 mg Tablet 80 MG PO (20:12)
[2022-11-23] VITALS (11 sets, daily range): BP systolic 88–118; BP diastolic 55–78; PULSE 53–59; RESP 12–20; TEMP 37; O2SAT 92–98
--- NOTE | 2022-11-23 00:36 | ECG_ITS ---
[facility] Test Date: 2022-11-23 Pat Name: Tavares Mercado Department: Room: [facility] Gender: Male Ship Steward: : 1955 Requested By: Goyo Deras Order Number: [id number] Garcia MD: Claudy Watson M.D. Measurements Intervals Coy Rate: 56 P: 68 VA: 182 QRS: 6 QRSD: 99 T: -56 QT: 423 QTc: 412 Interpretive Statements SINUS BRADYCARDIA Compared to ECG 11/22/2022 00:33:08 No significant changes Electronically Signed On 11-23-2022 9:20:46 CDT by lCaudy Watson M.D. [id number]
[2022-11-23 01:07] LABS: Anion Gap 9.9 (5-19); Blood Urea Nitrogen 15 mg/dL (8-23); Calcium 8.4 mg/dL (8.5-10.5); Carbon Dioxide 25 mmol/L (22-29); Chloride 108 mmol/L (98-107); Glomerular Filtration Rate 84.4 mL/min (90-130); Glucose 108 mg/dL (65-115); Osmolality Calculated 289 mOsm/kg (285-295); Potassium 3.9 mmol/L (3.5-5.1); Sodium 139 mmol/L (136-145)
[2022-11-23 01:24] LABS: Troponin T (5th) Once 2952 ng/L (0-15)
[2022-11-23 04:48] LABS: Basophils % 0.4 %; Eosinophils # 0.1 10^3/uL (0.0-0.8); Eosinophils % 0.7 %; Hematocrit 38.6 % (37-53); Lymphocytes # 2.2 10^3/uL (0.8-4.8); Lymphocytes % 23.2 %; Mean Corpuscular HGB Conc 32.1 g/dL (30-55); Mean Corpuscular Hemoglobin 29.3 pg (27-33); Mean Corpuscular Volume 91.3 fl (82-101); Mean Platelet Volume 9.7 fL (7.4-10.4); Monocytes % 10.1 %; Neutrophils # 6.16 10^3/uL (1.8-7.7); Neutrophils % 65.4 %; Nucleated Red Blood Cells % 0 %; Platelet Count 157 10^3/cmm (157-399); Red Blood Count 4.23 10^6/uL (3.85-5.65); Red Cell Distribution Width 13.1 % (12.1-15.1); White Blood Count 9.43 10^3/uL (3.29-11.43)
[2022-11-23 05:11] LABS: Anion Gap 11.1 (5-19); Blood Urea Nitrogen 14 mg/dL (8-23); Calcium 8.2 mg/dL (8.5-10.5); Carbon Dioxide 26 mmol/L (22-29); Chloride 108 mmol/L (98-107); Glomerular Filtration Rate 84.4 mL/min (90-130); Glucose 98 mg/dL (65-115); Osmolality Calculated 292 mOsm/kg (285-295); Potassium 4.1 mmol/L (3.5-5.1); Sodium 141 mmol/L (136-145)
--- NOTE | 2022-11-23 07:46 | PM.DCS ---
Discharge Providers Date of Admission: 11/21/22 19:58 Date of Discharge: November 23, 2022 Attending Provider at Admission: Claudy Watson M.D Attending Provider at Discharge: Claudy Watson M.D Primary Care Provider: Mk Aponte DO Diagnoses at Discharge Discharge Diagnosis (1) ST elevation myocardial infarction (STEMI): Status: Inactive Reason for Visit Reason for Visit: STEMI Brief History: 67 year old male with no significant prior cardiac history has presented to hospital with 1-2 hours of severe left-sided chest pain radiating to left arm and diaphoresis.? EKG performed shows inferior wall ST elevation AR.? Cardiac Loop Puller was emergently activated and patient brought to the Loop Puller. Hospital Course Hospital Course Coronary angiogram showed total thrombotic occlusion of the proximal RCA. He underwent successful revascularization with mechanical thrombectomy and stent x1. He stayed stable during the hospitalization. ECHO showed normal LV systolic function. Patient was discharged home in a stable condition on dual antiplatelet therapy with aspirin and plavix Physical Exam Narrative: GENERAL: Patient is alert, awake and oriented x3. [] NECK: No jugular vein distension. [] HEENT: No cyanosis. No icterus. No pallor. [] HEART: Regular S1 and S2. No murmur, rub or gallop. [] LUNGS: Clear to auscultate bilaterally. [] CENTRAL NERVOUS SYSTEM: Grossly nonfocal. [] EXTREMITIES: Lower extremities with no edema Discharge Data Studies Completed and Pending Completed Studies During Hospitalization Category Date Time Status S[employer]OR request for service Stat Exams 11/21/22 18:33 Completed XR chest 1V portable [id number] Stat Exams 11/21/22 18:31 Completed CV. echo complete* [id number] Routine Ultrasound 11/21/22 20:05 Completed Pending at discharge Category Date Time Status Basic Metabolic Panel AM LABS Lab 11/24/22 04:00 Ordered Complete Blood Count w/Auto AM LABS Lab 11/24/22 04:00 Ordered Radiology Impressions Chest X-Ray 11/21/22 18:31 IMPRESSION: No acute findings. Laboratory Results WBC 9.43 10^3/uL (3.29-11.43) 11/23/22 04:26 RBC 4.23 10^6/uL (3.85-5.65) 11/23/22 04:26 Hgb 12.40 g/dL (11.27-16.99) 11/23/22 04:26 Hct 38.6 % (37-53) 11/23/22 04:26 MCV 91.3 fl (82-101) 11/23/22 04:26 MCH 29.3 pg (27-33) 11/23/22 04:26 MCHC 32.1 g/dL (30-55) 11/23/22 04:26 RDW 13.1 % (12.1-15.1) 11/23/22 04:26 Plt Count 157 10^3/cmm (157-399) 11/23/22 04:26 MPV 9.7 fL (7.4-10.4) 11/23/22 04:26 Neut % (Auto) 65.4 % 11/23/22 04:26 Lymph % (Auto) 23.2 % 11/23/22 04:26 [place] % (Auto) 10.1 % 11/23/22 04:26 Eos % (Auto) 0.7 % 11/23/22 04:26 Baso % (Auto) 0.4 % 11/23/22 04:26 Neut # (Auto) 6.16 10^3/uL (1.8-7.7) 11/23/22 04:26 Lymph # (Auto) 2.2 10^3/uL (0.8-4.8) 11/23/22 04:26 [place] # (Auto) 1.0 10^3/uL (0.2-0.9) H 11/23/22 04:26 Eos # (Auto) 0.1 10^3/uL (0.0-0.8) 11/23/22 04:26 Baso # (Auto) 0.0 10^3/uL (0.0-0.1) 11/23/22 04:26 Nucleated RBC % (auto) 0 % 11/23/22 04:26 Nucleated RBCs # 0.0 /100WBC 11/23/22 04:26 APTT 79.4 SECONDS (23.9-36.7) H 11/21/22 22:14 Sodium 141 mmol/L (136-145) 11/23/22 04:26 Potassium 4.1 mmol/L (3.5-5.1) 11/23/22 04:26 Chloride 108 mmol/L (98-107) H 11/23/22 04:26 Carbon Dioxide 26 mmol/L (22-29) 11/23/22 04:26 Anion Gap 11.1 (5-19) 11/23/22 04:26 BUN 14 mg/dL (8-23) 11/23/22 04:26 Creatinine 0.9 mg/dL (0.7-1.2) 11/23/22 04:26 GFR Calculation 84.4 mL/min (90-130) L 11/23/22 04:26 Glucose 98 mg/dL (65-115) 11/23/22 04:26 Calculated Osmolality 292 mOsm/kg (285-295) 11/23/22 04:26 Calcium 8.2 mg/dL (8.5-10.5) L 11/23/22 04:26 Magnesium 2.0 mg/dL (1.7-2.3) 11/23/22 00:43 Total Bilirubin 0.4 mg/dL (0.15-1.2) 11/21/22 18:15 AST 18 U/L (0-40) 11/21/22 18:15 ALT 20 U/L (0-41) 11/21/22 18:15 Alkaline Phosphatase 55 U/L (40-130) 11/21/22 18:15 Troponin T Gen 5 ng/L 2952 ng/L (0-15) H* 11/23/22 00:43 Troponin T Baseline 18 ng/L (0-15) H 11/21/22 18:15 Troponin T 120 Minute 941.2 ng/L (0-15) H 11/21/22 21:28 Delta Troponin T 923.2 ABS# (0-10) H* 11/21/22 21:28 Troponin T Hi Sens 6Hr 2705 ng/L (0-15) H 11/22/22 02:24 Troponin T Hi Sens 6Hr Delta 2687 ng/L (0-12) H* 11/22/22 02:24 Total Protein 6.3 g/dL (6.6-8.7) L 11/21/22 18:15 Albumin 4.2 g/dL (3.5-5.2) 11/21/22 18:15 Globulin 2.1 g/dL (1.3-4.6) 11/21/22 18:15 Vitals Last Vital Signs Temp 98.6 F 11/22/22 08:00 Pulse 56 L 11/23/22 06:00 Resp 19 H 11/23/22 06:00 BP 111/72 11/23/22 06:00 Pulse Ox 95 11/23/22 06:00 O2 Del Method Room Air 11/22/22 06:00 O2 Flow Rate 2.5 11/21/22 18:30 Discharge Plan Discharge Patient Disposition: Home Condition: Stable Prescriptions: New clopidogrel 75 mg Tablet 75 mg PO DAILY Qty: 90 3RF aspirin 81 mg Tablet,Delayed Release (Dr/Ec) 81 mg PO DAILY Qty: 90 3RF metoprolol succinate 25 mg Tablet Extended Release 24 Hr 12.5 mg PO DAILY Qty: 90 3RF No Action nitroglycerin 0.4 mg tablet, sublingual 0.4 mg sublingual Q5M PRN (Reason: chest pain) Qty: 20 1RF Rx Instructions: do not exceed 3 doses per episode atorvastatin 80 mg tablet 80 mg PO BEDTIME Qty: 90 3RF Discharge Orders: Discharge Order (Routine); Ordered 11/23/22 Ordered By: Claudy Watson Referrals: Danyelle Oreilly FNP [Nurse Practitioner] - 11/30/22 1:00 pm Mk Aponte DO [Primary Care Provider] - 11/30/22 8:40 am Discharge Diet: Cardiac Discharge Activity: Increase activity as tolerated Patient Instructions: Metoprolol (By mouth) (Lopressor, Toprol XL), Aspirin (By mouth), Atorvastatin (By mouth) (Lipitor, Atorvaliq), Clopidogrel (By mouth) (Plavix), Heart Attack (DC), Chest Pain (DC), Coronary Angioplasty (DC), Heart Healthy Diet (DC), Chest Pain Stoplight, Opioid Safety, Post Angiogram Home Care Instructions, Post Heart Attack Stoplight Discharge Attestations Time Spent in Discharge Care*: greater than 30 min Quality Metrics Clinical Quality Measures [ Acute Myocardial Infaction { Clinical Trial Participant: No; Contraindication to aspirin: None; Aspirin prescribed; Contraindication to statin: None; Statin prescribed; Contraindication to PCI: None; PCI performed;}] Coding Level of Care Code Acute Code for [facility] Diagnoses ST elevation myocardial infarction (STEMI) I21.3
[2022-11-23] MEDS: metoprolol succinate ER (24 HR) 25 mg Tablet 12.5 MG PO (08:08)
[2022-11-23] MEDS: aspirin 81 mg EC Tablet PO (08:08)
[2022-11-23] MEDS: clopidogrel 75 mg Tablet PO (08:09)
--- NOTE | 2022-11-23 09:03 | PC.NURSE ---
Patient received discharge orders. All prescriptions sent to pharmacy. All IVs removed. Nurse went over all activity restrictions and discharge instructions with patient who verbalized understanding. No further questions. Patient ambulated to main exit with staff and family at [phone].
== END 2022-11-23 08:55 | disposition home or self-care (01) | DRG 229 ==
LOC: ER 19:40 → ICU 20:00
PROVIDERS: Family Medicine; Admitting Provider Internal Medicine; Emergency Provider Emergency Medicine; PCP Family Medicine; Visit Provider Internal Medicine
PROC: 02C00ZZ Extirpation of Matter from Coronary Artery, One Artery, Open Approach (ICD-10-PCS; principal; 2022-11-21 18:50)
PROC: 02C00ZZ Extirpation of Matter from Coronary Artery, One Artery, Open Approach (ICD-10-PCS; 2022-11-21 18:50)
DX: I21.11 ST elevation (STEMI) myocardial infarction involving right coronary artery (principal); Z87.891 Personal history of nicotine dependence
CPT/HCPCS: 36415; 71045; 80048; 80053; 83735; 84484; 85025; 85347; 85730; 92973; 93005; 93306; 93458; 96365; 96367; 96375; 96376; 99152; 99153; 99291; C1725; C1760; C1769; C1874; C1887; C1894; C9600; J0461; J1644; J2250; J2371; J2710; J3010; J3480; J3490; J7030; J7040; J7050; Q9967

== ENCOUNTER → 2022-11-30 12:56 | Outpatient (BNVA) | payer MEDICARE, OTHER, SELFPAY | PROVIDERS: PCP Family Medicine; Visit Provider Nurse Practitioner Family | DX: I25.10 Atherosclerotic heart disease of native coronary artery without angina pectoris (principal); Z87.891 Personal history of nicotine dependence | CPT/HCPCS: 36415; 99214 ==

== ENCOUNTER 2022-12-07 13:35 | Outpatient (RCR) | payer MEDICARE, OTHER, SELFPAY | END 2022-12-26 23:59 | disposition home or self-care (01) | LOC: CR 13:35 | PROVIDERS: PCP Family Medicine; Referring Provider Internal Medicine; Visit Provider Internal Medicine | DX: I25.10 Atherosclerotic heart disease of native coronary artery without angina pectoris (principal) | CPT/HCPCS: 93798 ==

== ENCOUNTER 2022-12-28 08:30 | Outpatient (RCR) | payer MEDICARE, OTHER, SELFPAY | END 2023-01-25 23:59 | disposition home or self-care (01) | LOC: CR 08:30 | PROVIDERS: PCP Family Medicine; Referring Provider Internal Medicine; Visit Provider Internal Medicine | DX: Z95.5 Presence of coronary angioplasty implant and graft (principal) | CPT/HCPCS: 93798 ==

== ENCOUNTER 2023-01-09 13:38 | Outpatient (CLI) | payer MEDICARE, OTHER, SELFPAY ==
[2023-01-09 14:27] LABS: Anion Gap 11.2 (5-19); Blood Urea Nitrogen 19 mg/dL (8-23); Calcium 9.1 mg/dL (8.5-10.5); Carbon Dioxide 29 mmol/L (22-29); Chloride 106 mmol/L (98-107); Glucose 81 mg/dL (65-115); Osmolality Calculated 295 mOsm/kg (285-295); Potassium 4.2 mmol/L (3.5-5.1); Sodium 142 mmol/L (136-145)
== END 2023-01-09 13:39 | disposition home or self-care (01) ==
LOC: LAB 13:40
PROVIDERS: PCP Family Medicine; Visit Provider Nurse Practitioner Family
DX: I25.10 Atherosclerotic heart disease of native coronary artery without angina pectoris (principal)
CPT/HCPCS: 36415; 80048

== ENCOUNTER → 2023-02-27 14:03 | Outpatient (BNVA) | payer MEDICARE, OTHER, SELFPAY | PROVIDERS: PCP Family Medicine; Visit Provider Internal Medicine | DX: I25.10 Atherosclerotic heart disease of native coronary artery without angina pectoris (principal); Z87.891 Personal history of nicotine dependence | CPT/HCPCS: 99214 ==

== ENCOUNTER → 2023-09-04 13:55 | Outpatient (BNVA) | payer MEDICARE, OTHER, SELFPAY | PROVIDERS: PCP Family Medicine; Visit Provider Internal Medicine | DX: I25.10 Atherosclerotic heart disease of native coronary artery without angina pectoris (principal); Z87.891 Personal history of nicotine dependence | CPT/HCPCS: 99214 ==

== ENCOUNTER → 2023-11-01 13:09 | Outpatient (BNVA) | payer MEDICARE, OTHER, SELFPAY | PROVIDERS: PCP Family Medicine; Visit Provider Family Medicine | DX: Z00.00 Encounter for general adult medical examination without abnormal findings (principal); H93.13 Tinnitus, bilateral; I25.10 Atherosclerotic heart disease of native coronary artery without angina pectoris; I21.3 ST elevation (STEMI) myocardial infarction of unspecified site | CPT/HCPCS: 80053; 80061 ==

== ENCOUNTER → 2024-03-04 13:55 | Outpatient (BNVA) | payer MEDICARE, OTHER, SELFPAY | PROVIDERS: PCP Family Medicine; Visit Provider Internal Medicine | DX: I25.10 Atherosclerotic heart disease of native coronary artery without angina pectoris (principal); Z87.891 Personal history of nicotine dependence; I25.2 Old myocardial infarction | CPT/HCPCS: 99214 ==

== ENCOUNTER → 2024-08-28 13:44 | Outpatient (BNVA) | payer MEDICARE, OTHER, SELFPAY | PROVIDERS: PCP Family Medicine; Visit Provider Nurse Practitioner Family | DX: I25.10 Atherosclerotic heart disease of native coronary artery without angina pectoris (principal); H92.20 Otorrhagia, unspecified ear; H93.13 Tinnitus, bilateral; R04.0 Epistaxis; I10 Essential (primary) hypertension; Z79.02 Long term (current) use of antithrombotics/antiplatelets; Z79.82 Long term (current) use of aspirin; Z87.891 Personal history of nicotine dependence; I25.2 Old myocardial infarction | CPT/HCPCS: 36415; 85025; 99214 ==

== ENCOUNTER → 2024-12-02 15:13 | Outpatient (BNVA) | payer MEDICARE, OTHER, SELFPAY | PROVIDERS: PCP Family Medicine; Visit Provider Internal Medicine | DX: I25.10 Atherosclerotic heart disease of native coronary artery without angina pectoris (principal); I25.2 Old myocardial infarction; Z87.891 Personal history of nicotine dependence | CPT/HCPCS: 99214 ==